=== PATIENT | female | born 1965 | race Caucasian/White ===

== ENCOUNTER 2016-11-05 09:43 | Outpatient (CLI) | payer OTHER ==
[~2016-11-05 09:43] MED LIST: CLARITIN10 MG PO; IRON SUPPLEMEN325 MG PO; LEVOTHYROXINE25 MCG PO; LISINOPRIL10 MG PO; MECLIZINE HCL25 M1 PO; METFORMIN HCL500 MG PO; NEURONTIN300 MG PO; PERCOCET1 TA1 PO; PLAVIX75 MG PO; PRAVASTATIN SOD40 MG PO; PRAZOSIN HCL1 MG PO; RANITIDINE HCL150 MG PO; SEROQUEL100 MG PO; VENTOLIN HFA IN; VOLTAREN1 % TOP
--- NOTE | 2016-11-05 12:07 | DIAGNOSTIC IMAGING REPORT ---
PROCEDURE: CT ABDOMEN/PELVIS W/O CONTRAST INDICATION: ABD PAIN TECHNIQUE: Axial CT images were obtained through the abdomen and pelvis without IV contrast. Coronal and sagittal reformations were created. COMPARISON: 06/26/2012 and upper GI and 05/21/2016 FINDINGS: Clear lung bases. Normal sized heart. No hiatal hernia. Surgical changes of Rosey fundoplication at the GE junction. Surgically absent gallbladder. Hypertrophy of the left and caudate lobes of the liver. Very subtle peripancreatic fat stranding, best seen adjacent to the body and tail of pancreas ventrally. The unenhanced appearance of the adrenal glands, kidneys, and spleen is normal. The abdominal aorta is normal in its course and caliber with trace atherosclerosis. There are no suspicious calcifications, retroperitoneal adenopathy or masses. The upper small bowel loops, and mesentery are normal. Intact anterior abdominal wall. No free fluid or inflammation. There is a smooth, mild wall thickening along the ventral aspect of the distal gastric antrum. No correlate on the recent upper GI study. There is a small amount of retained ingested material in the stomach. The left lower quadrant of the abdomen, the distal descending colon demonstrates circumferential wall thickening and trace pericolonic inflammatory change distally. No diverticula are present. This area was not imaged on the prior study. There is moderately increased amount of retained stool in the sigmoid colon and rectum. The uterus and appendix are surgically absent. Surgical changes of left inguinal hernia repair are seen. The unenhanced appearance of the urinary bladder, pelvic vessels, and pelvic bowel loops is normal. No suspicious calcifications, free pelvic fluid or mass. Intact osseous structures. Degenerative disc disease at L5-S1. IMPRESSION: 1. Circumferential wall thickening of a segment of distal descending colon with trace adjacent inflammation. No diverticula seen in this area. Without more significant inflammation, differential diagnosis includes colitis as well as neoplastic change. Lower endoscopy is recommended. 2. Very subtle peripancreatic fat stranding could indicate low-level pancreatitis. This finding was not present on the prior study. No changes of chronic pancreatitis. 3. Smooth, mild wall thickening of the ventral gastric antrum without correlate on recent upper GI study. This is most likely due to under distention of the stomach, however upper endoscopy would be diagnostic to exclude benign ulceration or gastritis. 4. Hypertrophy of the left and caudate liver lobes raises the possibility of early cirrhotic change. Correlate with history. 5. Surgical changes of Rosey fundoplication, cholecystectomy, appendectomy, hysterectomy and left inguinal hernia repair. All CT scans at this facility use dose modulation, iterative reconstruction, and/or weight-based dosing when appropriate to reduce radiation dose to as low as reasonably achievable.
[2016-11-06] MEDS ORDERED: SEROQUEL100 MG PO ×2 (12:44)
[2016-11-06] MEDS ORDERED: HYDROCHLOROTH12.5 MG PO (16:01)
[2016-11-06] MEDS ORDERED: SEROQUEL200 MG PO (16:07)
[2016-11-06] MEDS ORDERED: ATIVAN0.5 MG PO (16:15)
[2016-11-06] MEDS ORDERED: TRIAMCINOLONE A (16:16)
[2016-11-06] MEDS ORDERED: CELEBREX200 MG PO (16:17)
[2016-11-06] MEDS ORDERED: PANTOPRAZOLE SO40 MG PO (16:18)
[2016-11-06] MEDS ORDERED: VITAMIN D1000 UNIT PO (16:19)
[2016-11-06] MEDS ORDERED: DILT-XR120 MG PO (16:21)
[2016-11-06] MEDS ORDERED: ERY-TAB500 MG PO (16:22)
[2016-11-06] MEDS ORDERED: CYCLOBENZAPRINE5 MG PO (16:23)
[2016-11-06] MEDS ORDERED: VISTARIL25 MG PO (16:23)
[2016-11-06] MEDS ORDERED: HYDROMORPHONE HC2 MG PO (16:27)
[2016-11-06] MEDS ORDERED: DOCQLACE100 MG PO (16:28)
[2016-11-06] MEDS ORDERED: LIDODERM5 % TOP (16:29)
[2016-11-06] MEDS ORDERED: ONDANSETRON ODT4 MG PO (16:30)
[2016-11-06] MEDS ORDERED: METROCREAM0.75 % (16:31)
== END 2016-11-05 23:00 ==
LOC: CT SRH 09:43
DX: R10.9 Unspecified abdominal pain (principal); K63.9 Disease of intestine, unspecified; R16.0 Hepatomegaly, not elsewhere classified; Z90.49 Acquired absence of other specified parts of digestive tract; Z90.89 Acquired absence of other organs; Z98.890 Other specified postprocedural states

== ENCOUNTER 2016-11-05 19:21 | Observation (INO) | payer OTHER ==
[~2016-11-05] VITALS: Ht 182.9 cm; Wt 95.7 kg
--- NOTE | 2016-11-05 22:04 | ED NURSING NOTES ---
Clinical Report - Nurses [facility] [address] [place] [address] 11/05/2016 19:21 Patient: DENISE ENAMORADO TRIAGE Triage time 1933 PM. Acuity: LEVEL 3. Chief Complaint: ABDOMINAL PAIN and NAUSEA. 19:41 11/05/16. Alert. No acute distress. --19:42 Viraj Horn R.N. 19:32 11/05/16. BP: 107/84 taken on the left arm, via an automated monitor, while lying. HR: 84. RR: 16. O2 saturation: 96%. Temp: 98.7 F (oral). Pain level now: 05/19. --19:42 Viraj Horn R.N. Weight: 90.7 kg stated. Height/Length: 73 inches Per Patient. BMI: 26.4. --19:34 Viraj Horn R.N. Medications SEROquel Oral (Tablet 300 mg), 2x a day (1 tab by mouth every morning 1.5 tabs by mouth every evening). --20:15 Viraj Horn R.N. Meclizine HCl Oral 25 mg, as needed. --20:16 Viraj Horn R.N. Loratadine Oral (Tablet 10 mg). --20:17 Viraj Horn R.N. Pravastatin Sodium Oral (Tablet 40 mg). --20:18 Viraj Horn R.N. Ventolin HFA Inhalation (Aerosol Solution 108 (90 Base) mcg/act). --20:18 Viraj Horn R.N. Lisinopril Oral 2.5 mg, daily. --20:18 Viraj Horn R.N. MetFORMIN HCl Oral (Tablet 500 mg), 3x a day. --20:19 Viraj Horn R.N. Plavix Oral (Tablet 75 mg). --20:20 Justina, Viraj, R.N. Ferrous Sulfate Oral, 2x a day. --20:20 Viraj Horn R.N. Gabapentin Oral 300 mg. --20:21 JustinaViraj galdamez R.N. Ranitidine HCl Oral 150 mg, 2x a day. --20:21 Viraj Horn R.N. Voltaren Transdermal (Gel 1 %). --20:21 Viraj Horn R.N. Prazosin HCl Oral (Capsule 1 mg) 1 capsules, at bedtime. --20:22 Viraj Horn R.N. Levothyroxine Sodium Oral (Tablet 25 mcg) 1 tablet, daily. --20:22 Viraj Horn R.N. Oxycodone-Acetaminophen Oral (Tablet 5-325 mg) 1 tablet, 2x a day. --20:24 Viraj Horn R.N. Hydrochlorothiazide Oral (Tablet 12.5 mg) 1 tablet, daily. --20:25 Viraj Horn R.N. Triamcinolone Acetonide External (Cream 0.5 %), 2x a day as needed. --20:26 Viraj Horn R.N. CeleBREX Oral (Capsule 200 mg) 1 capsule, as needed. --20:28 Viraj Horn R.N. Pantoprazole Sodium Oral (Tablet Delayed Release 40 mg) 1 tablet, daily. --20:28 Viraj Horn R.N. Vitamin D3 Oral (Tablet 1000 unit) 1 tablet. --20:29 Viraj Horn R.N. Calcium + D Oral. --20:30 Viraj Horn R.N. Diltiazem HCl Oral (Tablet 120 mg). --20:30 Viraj Horn R.N. Cyclobenzaprine HCl Oral (Tablet 5 mg) 1 tablet, as needed. --20:31 Viraj Horn R.N. Vistaril Oral (Capsule 25 mg) 1 capsule. --20:31 Viraj Horn R.N. Dilaudid Oral (Tablet 2 mg) 2 tablets, PRN as needed. --20:31 Viraj oHrn R.N. Docusate Calcium Oral 100mg. --20:32 Viraj Horn R.N. Lidoderm External (Patch 5 %). --20:32 Viraj Horn R.N. Ondansetron HCl Oral (Tablet 4 mg) 1 tablet. --20:33 Viraj Horn R.N. MetroCream External (Cream 0.75 %). --20:33 Viraj Horn R.N. Allergies Aspirin. Penicillins. plastic tape . --19:40 Viraj Horn R.N. Walnuts. --20:33 Viraj Horn R.N. Strawberries. --20:34 Viraj Horn R.N. Latex. --20:34 Viraj Horn R.N. History Arrived by private vehicle. Historian: patient. Accompanied by family. Primary physician (Halle Schroeder). Onset was gradual. (about 1 month). ( Patient presents to the ED at the referral of her primary care physician. Patient states that she has been experiencing abdominal pain, nausea, and dry heaves for approximately 1 month. Patient states that she had CT scan of her abdomen today and was told by her PCP to come in for evaluation for pancreatitis. Patient states that she has been on antibiotics for approximately 2 weeks, but does not know exactly what she was taking why she was prescribed the antibiotics. Patient states that she just finished her course of antibiotics today.). She has had moderate constipation. ( Patient states that she experienced a bowel movement today and her stool was hard.). PAST MEDICAL HX: Immunizations: up-to-date. SOCIAL HX: Smoker- current status unknown. Alcohol use. (no). History of drug use. (no). --19:42 Viraj Horn R.N. PROBLEMS: Depression. Bipolar Disorder. PTSD. Personality Disorder. TMJ Syndrome. Chest Pain. LNMP - Last Normal Menstrual Period. Migraine Headache. Heart Murmur. TIA - Transient Ischemic Attack. Pleurisy. Sleep Apnea. Tension-Type Headache. Headache. Diabetes Mellitus. Hypertension. Immunizations. --19:41 Viraj Horn R.N. ADDITIONAL SURGERIES: Abdominal Hernia Repair. Appendectomy. Cholecystectomy. Esophagus surgery. Hysterectomy. Ortho surgeries. Umbilical Hernia Repair. --19:41 Viraj Horn R.N. Interventions ID band on patient. --19:42 Viraj Horn R.N. PHYSICAL ASSESSMENT Ambulatory to room. GENERAL / NEURO / PSYCH: Alert. Oriented X 4. Appears in no acute distress. HEENT: Mucous membranes are pink. RESPIRATORY: Respirations not labored. Breath sounds within normal limits. CVS: Normal sinus rhythm noted. Capillary refill less than 2 seconds. GI / : The patient has had nausea. Emesis noted. (dry heaves). Abdominal tenderness. Rebound tenderness. SKIN: Skin is warm and dry. --19:43 Viraj Horn R.N. NURSING PROGRESS NOTES Reassurance given. Call light placed in reach. Side rails up x 2. Bed placed in lowest position. Brakes of bed on. --19:44 Viraj Horn R.N. 20:18 11/05/2016 Site #1 started via IV in the left forearm with an 22g angiocath, with aseptic technique and good blood return; one attempt. Blood drawn. Labeled in the presence of the patient and sent to the lab. Saline lock flushed with 10 mL saline (Only able to draw red tube). --20:18 Jodie Gonzalez Checked patient name and birthdate: patient confirmed. Blood samples drawn from the left hand with syringe and 23g butterfly by tech per protocol ; labeled in presence of the patient and sent to lab: rainbow set. --20:52 Jaquelin Looney 20:55 11/05/2016 Started IV Fluids IV NS (Saline); bolus of 500 mL wide open then at 125 mL/hr over 4 hour(s) via site #1 via IV pump. Allergies verified and confirmed 5 rights. IV patency established. IV site checked: no pain, redness, or swelling. IV flushed thoroughly pre- and post-medication administration. --20:55 Viraj Horn R.N. 20:55 11/05/2016 Dilaudid (HYDROmorphone HCl PF) IVP 0.5 mg given over 2 minute(s) via site #1. Allergies verified, confirmed 5 rights and sedative warning given to the patient. IV patency established. IV site checked: no pain, redness, or swelling. IV flushed thoroughly pre- and post-medication administration. IVP given by RN. --20:55 Viraj Horn R.N. 20:55 11/05/2016 Zofran (Ondansetron HCl) IVP 4 mg given over 2 minute(s) via site #1. Allergies verified and confirmed 5 rights. IV patency established. IV site checked: no pain, redness, or swelling. IV flushed thoroughly pre- and post-medication administration. IVP given by RN. --20:55 Viraj Horn R.N. 21:19 11/05/16. BP: 111/66. HR: 62. RR: 16. O2 saturation: 91% on room air. Pain level now: 8. --21:20 Viraj Horn R.N. The patient is calm and resting quietly. Overall patient status is the same- she states feels the same. --21:20 Viraj Horn R.N. 21:20 11/05/2016 Dilaudid IVP Response: symptoms are the same. The patient feels the same. --21:20 Viraj Horn R.N. 22:06 11/05/2016 Dilaudid (HYDROmorphone HCl PF) IVP 1 mg given. via site #1. Allergies verified, confirmed 5 rights and sedative warning given to the patient. IV patency established. IV site checked: no pain, redness, or swelling. IV flushed thoroughly pre- and post-medication administration. IVP given by RN. --22:06 Viraj Horn R.N. 22:21 11/05/2016 Started 750 mg of Levaquin (Levofloxacin) IVPB in bag #1 500 mL; at 100 mL/hr over 90 minute(s) via site #1 via IV pump. Allergies verified and confirmed 5 rights. IV patency established. IV site checked: no pain, redness, or swelling. IV flushed thoroughly pre- and post-medication administration. --22:21 Viraj Horn R.N. 22:22 11/05/2016 Toradol IVP 30 mg given over 2 minute(s) via site #1. Allergies verified and confirmed 5 rights. IV patency established. IV site checked: no pain, redness, or swelling. IV flushed thoroughly pre- and post-medication administration. IVP given by RN. --22:22 Viraj Horn R.N. 22:33 11/05/16. BP: 93/57 taken on the left arm, via an automated monitor, while lying. HR: 62. RR: 16. O2 saturation: 97%. Pain level now: 0/10. --22:35 Viraj Horn R.N. The patient is calm and resting quietly. Overall patient status is improved- she states feels better. --22:35 Viraj Horn R.N. 22:35 11/05/2016 Dilaudid IVP Response: pain is gone now. Symptoms have improved the patient feels better. --22:35 Viraj Horn R.N. 22:35 11/05/2016 Toradol IVP Response: pain is gone now. Symptoms have improved the patient feels better. --22:35 Viraj Horn R.N. 22:35 11/05/2016 Levaquin IVPB Response: no adverse reaction. --22:35 Viraj Horn R.N. 22:36 11/05/2016 Levaquin IVPB Continued: upon admission at the rate of 100 mL/hr. 350 mL remaining bag #1. IV patency established. IV site checked: no pain, redness, or swelling. IV flushed thoroughly. --22:36 Viraj Horn R.N. DISPOSITION / DISCHARGE Condition at departure: improved. The goals identified in the patient's plan of care were met. Admitted to Acute Care (2300 PM). Report was given to a nurse via a phone call. Report included patient's care, treatment, medications, reviewed medication reconcilliation, and condition (including any recent changes or anticipated changes). All questions were answered. Report was acknowledged and care was transferred. (Naa). FALL RISK ASSESSMENT: Fall risk assessment completed. No fall risk identified. --23:03 Viraj Horn R.N. 23:01 11/05/16. BP: 100/45. HR: 65. RR: 16. O2 saturation: 97%. Pain level now: 0/10. --23:03 Viraj Horn R.N. Locked/Released at 11/05/2016 23:12 by Viraj Horn R.N.
--- NOTE | 2016-11-05 22:04 | ED ORDER SUMMARY ---
..... Patient: DENISE ENAMORADO OrderSheet Merged With [facility] VisitID: [id number] [place] [address] 51y, F Registration Date/Time: 11/05/2016 ORDER SHEET Weight: 90.7 kg (stated) Allergies: Aspirin, Penicillins, plastic tape , Walnuts, Strawberries, Latex GENERAL ORDERS: CBC w Diff Urgent (20:00 11/05/2016 Malathi JOY) (Ack 20:11 LMuller) (20:47 HOShaughnessy R.N.) CMP Urgent (20:11/05/2016 Malathi JOY) (Ack 20:11 LMuller) (20:47 HOShaughnessy R.N.) UA-Culture if indicated Urgent (20:11/05/2016 Malathi JOY) (Ack 20:11 LMuller) (20:47 HOShaughnessy R.N.) Amylase Urgent (20:11/05/2016 Malathi JOY) (Ack 20:11 LMuller) (20:47 HOShaughnessy R.N.) Lipase Urgent (20:11/05/2016 Malathi JOY) (Ack 20:11 LMuller) (20:47 HOShaughnessy R.N.) MEDICATION ORDERS: - (seroquel 450 mg PO one now) (22:14 11/05/2016 Zonia Ramos) (Ack 22:22 HOShaughnessy R.N.) IV FLUIDS: IV NS : initial bolus 500 mL (1000 mL/hr), then 125 mL/hr for 4h (NOW); Urgent (19:59 11/05/2016 Malathi JOY) (20:55 HOShaughnessy R.N.) Dilaudid IV 0.5 mg (HIGH ALERT MEDICATION, NOW) (20:21 11/05/2016 Malathi JOY) (20:55 HOShaughnessy R.N.) Zofran IV 4 mg (NOW) (20:21 11/05/2016 Malathi JOY) (20:55 HOShaughnessy R.N.) Dilaudid IV 1 mg (HIGH ALERT MEDICATION, NOW) (21:56 11/05/2016 Zonia Ramos) (22:06 Terri R.N.) Levaquin IV 750 mg/150 mL (NOW) (22:04 11/05/2016 Zonia Ramos) (22:21 Terri R.N.) Flagyl IV 500 mg/100mL (NOW) (22:04 11/05/2016 Zonia Ramos) (Ack 22:25 Terri R.N.) Toradol IV 30 mg (NOW) (22:13 11/05/2016 Zonia Ramos) (22:22 Terri R.N.) ORDER SHEET NOTES: [Electronically signed by Viraj Horn R.N. (23:12 11/05/2016)] [Electronically signed by Bradley Martinez Dr. (17:44 11/11/2016)] [Electronically locked/signed by Viraj Horn R.N. (23:12 11/05/2016)]
--- NOTE | 2016-11-05 22:04 | ED ORDER SUMMARY ---
..... Patient: DENISE ENAMORADO OrderSheet Merged With [facility] VisitID: [id number] [place] [address] 51y, F Registration Date/Time: 11/05/2016 ORDER SHEET Weight: 90.7 kg (stated) Allergies: Aspirin, Penicillins, plastic tape , Walnuts, Strawberries, Latex GENERAL ORDERS: CBC w Diff Urgent (20:00 11/05/2016 Malathi JOY) (Ack 20:11 LMuller) (20:47 HOShaughnessy R.N.) CMP Urgent (20:11/05/2016 Malathi JOY) (Ack 20:11 LMuller) (20:47 HOShaughnessy R.N.) UA-Culture if indicated Urgent (20:11/05/2016 Malathi JOY) (Ack 20:11 LMuller) (20:47 HOShaughnessy R.N.) Amylase Urgent (20:11/05/2016 Malathi JOY) (Ack 20:11 LMuller) (20:47 HOShaughnessy R.N.) Lipase Urgent (20:11/05/2016 Malathi JOY) (Ack 20:11 LMuller) (20:47 HOShaughnessy R.N.) MEDICATION ORDERS: - (seroquel 450 mg PO one now) (22:14 11/05/2016 Zonia Ramos) (Ack 22:22 HOShaughnessy R.N.) IV FLUIDS: IV NS : initial bolus 500 mL (1000 mL/hr), then 125 mL/hr for 4h (NOW); Urgent (19:59 11/05/2016 Malathi JOY) (20:55 HOShaughnessy R.N.) Dilaudid IV 0.5 mg (HIGH ALERT MEDICATION, NOW) (20:21 11/05/2016 Malathi JOY) (20:55 HOShaughnessy R.N.) Zofran IV 4 mg (NOW) (20:21 11/05/2016 Malathi JOY) (20:55 HOShaughnessy R.N.) Dilaudid IV 1 mg (HIGH ALERT MEDICATION, NOW) (21:56 11/05/2016 Zonia Ramos) (22:06 Terri R.N.) Levaquin IV 750 mg/150 mL (NOW) (22:04 11/05/2016 Zonia Ramos) (22:21 Terri R.N.) Flagyl IV 500 mg/100mL (NOW) (22:04 11/05/2016 Zonia Ramos) (Ack 22:25 Terri R.N.) Toradol IV 30 mg (NOW) (22:13 11/05/2016 Zonia Ramos) (22:22 Terri R.N.) ORDER SHEET NOTES: [Electronically signed by Viraj Horn R.N. (23:12 11/05/2016)] [Electronically signed by Bradley Martinez Dr. (17:44 11/11/2016)] [Electronically locked/signed by Viraj Horn R.N. (23:12 11/05/2016)]
--- NOTE | 2016-11-05 22:04 | ED CLINICAL REPORT ---
Clinical Report - Physicians/Mid Levels [facility] [address] [place] [address] 11/05/2016 19:21 Patient: DENISE ENAMORADO Time Seen: 19:43. Arrived- By private vehicle. Historian- patient and patient's physician (Dr. Zavaleta). HISTORY OF PRESENT ILLNESS Chief Complaint: ABDOMINAL PAIN. This started several months ago and is still present and worsening. It was gradual in onset and has been intermittent and waxing/waning. At its maximum, severity described as 10 / 10. When seen in the E.D., severity described as 9 / 10. It is described as "pain" and stabbing. No radiation. It is described as located in the periumbilical area. The patient has had nausea. No loss of appetite. She has had vomiting ("dry heaves"). She has had mild diarrhea (intermittently - she attributes this to IBS). No recent travel. REVIEW OF SYSTEMS The patient has had chills. No fever, sweats, calf pain, chest pain or difficulty breathing. No pedal edema, black stools, bloody stools or urinary problems. She has had a nonproductive cough ("after I dry heave"). She has had palpitations (chronically). She has had constipation (intermittently - she attributes this to her IBS). She has had diarrhea (intermittently - she attributes this to her IBS). She has had moderate back pain (chronically). It has been similar to previous symptoms. All systems otherwise negative, except as recorded above. PAST HISTORY PCP - Meghann. Problems: Irritable Bowel Syndrome. Depression. Bipolar Disorder. PTSD. Personality Disorder. TMJ Syndrome. Chest Pain. Migraine Headache. Heart Murmur. TIA - Transient Ischemic Attack. Pleurisy. Sleep Apnea. Tension-Type Headache. Headache. Diabetes Mellitus. Hypertension. Additional Surgeries: Abdominal Hernia Repair. Appendectomy. Cholecystectomy. Esophagus surgery. Hysterectomy. Ortho surgeries. Umbilical Hernia Repair. Allergies: Aspirin. Penicillins. plastic tape . SOCIAL HISTORY Former smoker, end date 2003. No alcohol use or drug use. Residence: [place]. FAMILY HISTORY Diabetes in first-degree relative (mother); stroke in first-degree relative (father); emphysema in first-degree relative (father). brother with hepatitis C. ADDITIONAL NOTES The nursing notes have been reviewed. PHYSICAL EXAM Vital Signs: 11/05/2016 19:32 BP: 107/84. HR: 84. RR: 16. O2 saturation: 96%. Temp: 98.7 F. Pain level now: 9/10. Have been reviewed. Appearance: Alert. Appears to be in pain. Eyes: Pupils equal, round and reactive to light. ENT: Pharynx normal. Neck: Normal inspection. Neck supple. CVS: Normal heart rate and rhythm. Heart sounds normal. Respiratory: No respiratory distress. Breath sounds normal. Abdomen: Soft. Moderate tenderness in the upper abdomen. Bowel sounds normal. No organomegaly. No mass. Obese. Back: Normal inspection. No CVA tenderness. Skin: Skin warm and dry. Normal skin color. Normal skin turgor. Extremities: Extremities exhibit normal ROM. No calf tenderness. No lower extremity edema. LABS, X-RAYS, AND EKG Abdominal CT: PROCEDURE: CT ABDOMEN/PELVIS W/O CONTRAST INDICATION: ABD PAIN TECHNIQUE: Axial CT images were obtained through the abdomen and pelvis without IV contrast. Coronal and sagittal reformations were created. COMPARISON: 06/26/2012 and upper GI and 05/21/2016 FINDINGS: Clear lung bases. Normal sized heart. No hiatal hernia. Surgical changes of Rosey fundoplication at the GE junction. Surgically absent gallbladder. Hypertrophy of the left and caudate lobes of the liver. Very subtle peripancreatic fat stranding, best seen adjacent to the body and tail of pancreas ventrally. The unenhanced appearance of the adrenal glands, kidneys, and spleen is normal. The abdominal aorta is normal in its course and caliber with trace atherosclerosis. There are no suspicious calcifications, retroperitoneal adenopathy or masses. The upper small bowel loops, and mesentery are normal. Intact anterior abdominal wall. No free fluid or inflammation. There is a smooth, mild wall thickening along the ventral aspect of the distal gastric antrum. No correlate on the recent upper GI study. There is a small amount of retained ingested material in the stomach. The left lower quadrant of the abdomen, the distal descending colon demonstrates circumferential wall thickening and trace pericolonic inflammatory change distally. No diverticula are present. This area was not imaged on the prior study. There is moderately increased amount of retained stool in the sigmoid colon and rectum. The uterus and appendix are surgically absent. Surgical changes of left inguinal hernia repair are seen. The unenhanced appearance of the urinary bladder, pelvic vessels, and pelvic bowel loops is normal. No suspicious calcifications, free pelvic fluid or mass. Intact osseous structures. Degenerative disc disease at L5-S1. IMPRESSION: 1. Circumferential wall thickening of a segment of distal descending colon with trace adjacent inflammation. No diverticula seen in this area. Without more significant inflammation, differential diagnosis includes colitis as well as neoplastic change. Lower endoscopy is recommended. 2. Very subtle peripancreatic fat stranding could indicate low-level pancreatitis. This finding was not present on the prior study. No changes of chronic pancreatitis. 3. Smooth, mild wall thickening of the ventral gastric antrum without correlate on recent upper GI study. This is most likely due to under distention of the stomach, however upper endoscopy would be diagnostic to exclude benign ulceration or gastritis. 4. Hypertrophy of the left and caudate liver lobes raises the possibility of early cirrhotic change. Correlate with history. Study type: abdomen and pelvis. Abdominal CT performed with IV contrast. The study was independently viewed by me, interpreted by the radiologist and discussed with the radiologist. Laboratory Tests: CBC w Diff: (SINA: 11/06/2016 05:25) ( MsgRcvd 11/06/2016 05:44) Final results Test Result Flag Units (Reference) WHITE BLOOD COUNT 9.5 K/uL (4.5-11.5) RED BLOOD COUNT 4.52 M/uL (4.00-5.20) HEMOGLOBIN 13.1 gm/dL (12.0-16.0) HEMATOCRIT 39.6 % (36.0-46.0) MEAN CELL VOLUME 88 fL (80-100) MEAN CORPUSCULAR HGB 29 pg (26-34) MEAN CORPUSCULAR HGB CONC 33 g/dL (31-37) RED CELL DISTRIBUTION WIDTH 13.6 % (11.6-14.8) PLATELET COUNT 219 K/uL (150-400) NEUTROPHIL % 48.6 L % (50-75) LYMPH % 42.7 H % (25-40) MONO % 6.1 % (3-14) EOSINOPHIL % 2.3 % (0-4) BASOPHIL % 0.3 % (0-2) Troponin-I: (SINA: 11/06/2016 11:20) ( [facility] [place] 11/09/2016 14:48) Final results Test Result Flag Units (Reference) TROPONIN I <0.05 ng/mL (0.00-1.5) TROPONIN REFERENCE RANGE:<0.1 NEGATIVE0.1-1.5 INDETERMINANT>1.5 POSITIVE THYROID STIMULATING HORMONE 2.915 uIU/mL (0.34-3.74) FREE T4 (FREE THYROXINE) 0.97 ng/dL (0.78-4.13) FREE T3 2.1 L pg/mL (2.91-4.70) BMP: (SINA: 11/06/2016 05:25) ( [facility] 11/06/2016 09:47) Final results Test Result Flag Units (Reference) GLUCOSE 109 mg/dL (70-110) BUN 13 mg/dL (7-18) CREATININE 0.7 mg/dL (0.6-1.3) Estimated GFR >60 mL/min Estimated GFR- >60 mL/min Note: Persistent reduction over 3 months in eGFR<60 mL/min/1.73 m2 defines CKD. Patients with eGFR values>=60 mL/min/1.73 m2 may also have CKD if evidence ofpersistent proteinuria. Additional information may be foundat [email or web address]. SODIUM 145 mmol/L (136-145) POTASSIUM 3.4 L mmol/L (3.5-5.1) CHLORIDE 106 mmol/L (98-107) CARBON DIOXIDE 31 mmol/L (21-32) CALCIUM 9.0 mg/dL (8.5-10.1) MAGNESIUM 1.5 L mg/dL (1.8-2.4) THYROID STIMULATING HORMONE 7.105 H uIU/mL (0.34-3.74) UA-Culture if indicated: (SINA: 11/05/2016 12:50) ( [facility] 11/06/2016 13:26) Final results Test Result Flag Units (Reference) URINE COLOR YELLOW URINE APPEARANCE CLEAR URINE GLUCOSE NEGATIVE (NEGATIVE) URINE BILIRUBIN NEGATIVE (NEGATIVE) URINE KETONE TRACE (NEGATIVE) URINE SPECIFIC GRAVITY >= 1.030 (1.010-1.030) URINE PH 6.0 (5.0-8.0) URINE PROTEIN TRACE (NEGATIVE) URINE UROBILINOGEN 0.2 EU/dL (0.2-1.0) URINE NITRITE NEGATIVE (NEGATIVE) URINE BLOOD NEGATIVE (NEGATIVE) URINE LEUK ESTERASE NEGATIVE (NEGATIVE) URINE RBC NONE SEEN rbc/hpf (0-1) URINE WBC 1-3 wbc/hpf (0-1) URINE EPITHELIAL CELLS 1-3 EPI/hpf (0-5) URINE BACTERIA FEW (1+) (NONE SEEN) URINE COMMENT CULT NOT INDICATED 0-1 HYALINE CAST. 1+ MUCOUS. 1+ YEASTURINE CULTURES ARE SET-UP BASED ON THE FOLLOWING CRITERIA:POSITIVE NITRITEPOSITIVE LEUKOCYTE ESTERASEGREATER THAN 10 WHITE BLOOD CELLSMODERATE (2+) OR GREATER BACTERIA CBC w Diff: (SINA: 11/05/2016 20:45) ( [facility] [place] 11/05/2016 21:12) Final results Test Result Flag Units (Reference) WHITE BLOOD COUNT 11.4 K/uL (4.5-11.5) RED BLOOD COUNT 5.08 M/uL (4.00-5.20) HEMOGLOBIN 14.7 gm/dL (12.0-16.0) HEMATOCRIT 44.7 % (36.0-46.0) MEAN CELL VOLUME 88 fL (80-100) MEAN CORPUSCULAR HGB 29 pg (26-34) MEAN CORPUSCULAR HGB CONC 33 g/dL (31-37) RED CELL DISTRIBUTION WIDTH 13.9 % (11.6-14.8) PLATELET COUNT 238 K/uL (150-400) NEUTROPHIL % 69.1 % (50-75) LYMPH % 24.8 L % (25-40) MONO % 4.9 % (3-14) EOSINOPHIL % 0.9 % (0-4) BASOPHIL % 0.3 % (0-2) CMP: (SINA: 11/05/2016 20:16) ( [facility] 11/05/2016 20:51) Final results Test Result Flag Units (Reference) GLUCOSE 108 mg/dL (70-110) BUN 11 mg/dL (7-18) CREATININE 0.7 mg/dL (0.6-1.3) Estimated GFR >60 mL/min Estimated GFR- >60 mL/min Note: Persistent reduction over 3 months in eGFR<60 mL/min/1.73 m2 defines CKD. Patients with eGFR values>=60 mL/min/1.73 m2 may also have CKD if evidence ofpersistent proteinuria. Additional information may be foundat [email or web address]. SODIUM 144 mmol/L (136-145) POTASSIUM 3.8 mmol/L (3.5-5.1) CHLORIDE 104 mmol/L (98-107) CARBON DIOXIDE 29 mmol/L (21-32) CALCIUM 9.7 mg/dL (8.5-10.1) TOTAL PROTEIN 7.1 g/dL (6.4-8.2) ALBUMIN 4.1 g/dL (3.3-5.0) BILIRUBIN, TOTAL 0.4 mg/dL (0.0-1.0) ALKALINE PHOSPHATASE 62 U/L (46-116) AST (SGOT) 21 U/L (15-37) ALT (SGPT) 27 U/L (12-78) LIPASE 120 U/L (73-393) AMYLASE 26 U/L (25-115) . PROGRESS AND PROCEDURES Course of Care: 21:09 11/05/16. The case was discussed with Dr. Fan at change of shift reviewed the patient's history and examination findings. He will follow up on the results of the patient's pending studies and will arrange an appropriate disposition for her. - YVONNE the patient is a pleasant 51-year-old female presenting for evaluation of abdominal pain. The patient is a evaluated by the previous doctor. Agreed assessment and plan. Plan is follow-up on the patient's laboratory studies and CT scan. Patient's pain in the emergency department was somewhat difficult to control. Because of the findings noted on CT scan, discussed with patient in admission to the hospital versus outpatient management. Because the pain is not been able to control well here in the emergency department, patient is not a good outpatient candidate. Discussed case with the hospitalist who will admit the patient. Antibiotics of been provided. Discussed with patient her workup here in the emergency department and laboratory studies including her diagnosis and plan of care. All questions have been answered. The patient was agreeable to the treatment plan. No further recommendations made by internal medicine in regards to patient's admission to the hospital. Disposition: Observation in Acute Care. CLINICAL IMPRESSION acute intractable abdominal pain acute colitis. (Electronically signed by Bradley Martinez Dr. 11/11/2016 17:44)
--- NOTE | 2016-11-05 22:04 | ED CLINICAL REPORT ---
Clinical Report - Physicians/Mid Levels [facility] [address] [place] [address] 11/05/2016 19:21 Patient: DENISE ENAMORADO Time Seen: 19:43. Arrived- By private vehicle. Historian- patient and patient's physician (Dr. Zavaleta). HISTORY OF PRESENT ILLNESS Chief Complaint: ABDOMINAL PAIN. This started several months ago and is still present and worsening. It was gradual in onset and has been intermittent and waxing/waning. At its maximum, severity described as 10 / 10. When seen in the E.D., severity described as 9 / 10. It is described as "pain" and stabbing. No radiation. It is described as located in the periumbilical area. The patient has had nausea. No loss of appetite. She has had vomiting ("dry heaves"). She has had mild diarrhea (intermittently - she attributes this to IBS). No recent travel. REVIEW OF SYSTEMS The patient has had chills. No fever, sweats, calf pain, chest pain or difficulty breathing. No pedal edema, black stools, bloody stools or urinary problems. She has had a nonproductive cough ("after I dry heave"). She has had palpitations (chronically). She has had constipation (intermittently - she attributes this to her IBS). She has had diarrhea (intermittently - she attributes this to her IBS). She has had moderate back pain (chronically). It has been similar to previous symptoms. All systems otherwise negative, except as recorded above. PAST HISTORY PCP - Meghann. Problems: Irritable Bowel Syndrome. Depression. Bipolar Disorder. PTSD. Personality Disorder. TMJ Syndrome. Chest Pain. Migraine Headache. Heart Murmur. TIA - Transient Ischemic Attack. Pleurisy. Sleep Apnea. Tension-Type Headache. Headache. Diabetes Mellitus. Hypertension. Additional Surgeries: Abdominal Hernia Repair. Appendectomy. Cholecystectomy. Esophagus surgery. Hysterectomy. Ortho surgeries. Umbilical Hernia Repair. Allergies: Aspirin. Penicillins. plastic tape . SOCIAL HISTORY Former smoker, end date 2003. No alcohol use or drug use. Residence: [place]. FAMILY HISTORY Diabetes in first-degree relative (mother); stroke in first-degree relative (father); emphysema in first-degree relative (father). brother with hepatitis C. ADDITIONAL NOTES The nursing notes have been reviewed. PHYSICAL EXAM Vital Signs: 11/05/2016 19:32 BP: 107/84. HR: 84. RR: 16. O2 saturation: 96%. Temp: 98.7 F. Pain level now: 9/10. Have been reviewed. Appearance: Alert. Appears to be in pain. Eyes: Pupils equal, round and reactive to light. ENT: Pharynx normal. Neck: Normal inspection. Neck supple. CVS: Normal heart rate and rhythm. Heart sounds normal. Respiratory: No respiratory distress. Breath sounds normal. Abdomen: Soft. Moderate tenderness in the upper abdomen. Bowel sounds normal. No organomegaly. No mass. Obese. Back: Normal inspection. No CVA tenderness. Skin: Skin warm and dry. Normal skin color. Normal skin turgor. Extremities: Extremities exhibit normal ROM. No calf tenderness. No lower extremity edema. LABS, X-RAYS, AND EKG Abdominal CT: PROCEDURE: CT ABDOMEN/PELVIS W/O CONTRAST INDICATION: ABD PAIN TECHNIQUE: Axial CT images were obtained through the abdomen and pelvis without IV contrast. Coronal and sagittal reformations were created. COMPARISON: 06/26/2012 and upper GI and 05/21/2016 FINDINGS: Clear lung bases. Normal sized heart. No hiatal hernia. Surgical changes of Rosey fundoplication at the GE junction. Surgically absent gallbladder. Hypertrophy of the left and caudate lobes of the liver. Very subtle peripancreatic fat stranding, best seen adjacent to the body and tail of pancreas ventrally. The unenhanced appearance of the adrenal glands, kidneys, and spleen is normal. The abdominal aorta is normal in its course and caliber with trace atherosclerosis. There are no suspicious calcifications, retroperitoneal adenopathy or masses. The upper small bowel loops, and mesentery are normal. Intact anterior abdominal wall. No free fluid or inflammation. There is a smooth, mild wall thickening along the ventral aspect of the distal gastric antrum. No correlate on the recent upper GI study. There is a small amount of retained ingested material in the stomach. The left lower quadrant of the abdomen, the distal descending colon demonstrates circumferential wall thickening and trace pericolonic inflammatory change distally. No diverticula are present. This area was not imaged on the prior study. There is moderately increased amount of retained stool in the sigmoid colon and rectum. The uterus and appendix are surgically absent. Surgical changes of left inguinal hernia repair are seen. The unenhanced appearance of the urinary bladder, pelvic vessels, and pelvic bowel loops is normal. No suspicious calcifications, free pelvic fluid or mass. Intact osseous structures. Degenerative disc disease at L5-S1. IMPRESSION: 1. Circumferential wall thickening of a segment of distal descending colon with trace adjacent inflammation. No diverticula seen in this area. Without more significant inflammation, differential diagnosis includes colitis as well as neoplastic change. Lower endoscopy is recommended. 2. Very subtle peripancreatic fat stranding could indicate low-level pancreatitis. This finding was not present on the prior study. No changes of chronic pancreatitis. 3. Smooth, mild wall thickening of the ventral gastric antrum without correlate on recent upper GI study. This is most likely due to under distention of the stomach, however upper endoscopy would be diagnostic to exclude benign ulceration or gastritis. 4. Hypertrophy of the left and caudate liver lobes raises the possibility of early cirrhotic change. Correlate with history. Study type: abdomen and pelvis. Abdominal CT performed with IV contrast. The study was independently viewed by me, interpreted by the radiologist and discussed with the radiologist. Laboratory Tests: CBC w Diff: (SINA: 11/06/2016 05:25) ( MsgRcvd 11/06/2016 05:44) Final results Test Result Flag Units (Reference) WHITE BLOOD COUNT 9.5 K/uL (4.5-11.5) RED BLOOD COUNT 4.52 M/uL (4.00-5.20) HEMOGLOBIN 13.1 gm/dL (12.0-16.0) HEMATOCRIT 39.6 % (36.0-46.0) MEAN CELL VOLUME 88 fL (80-100) MEAN CORPUSCULAR HGB 29 pg (26-34) MEAN CORPUSCULAR HGB CONC 33 g/dL (31-37) RED CELL DISTRIBUTION WIDTH 13.6 % (11.6-14.8) PLATELET COUNT 219 K/uL (150-400) NEUTROPHIL % 48.6 L % (50-75) LYMPH % 42.7 H % (25-40) MONO % 6.1 % (3-14) EOSINOPHIL % 2.3 % (0-4) BASOPHIL % 0.3 % (0-2) Troponin-I: (SINA: 11/06/2016 11:20) ( [facility] Final results Test Result Flag Units (Reference) TROPONIN I <0.05 ng/mL (0.00-1.5) TROPONIN REFERENCE RANGE:<0.1 NEGATIVE0.1-1.5 INDETERMINANT>1.5 POSITIVE THYROID STIMULATING HORMONE 2.915 uIU/mL (0.34-3.74) FREE T4 (FREE THYROXINE) 0.97 ng/dL (0.78-4.13) FREE T3 2.1 L pg/mL (2.91-4.70) BMP: (SINA: 11/06/2016 05:25) ( [facility] 11/[facility] 09:47) Final results Test Result Flag Units (Reference) GLUCOSE 109 mg/dL (70-110) BUN 13 mg/dL (7-18) CREATININE 0.7 mg/dL (0.6-1.3) Estimated GFR >60 mL/min Estimated GFR- >60 mL/min Note: Persistent reduction over 3 months in eGFR<60 mL/min/1.73 m2 defines CKD. Patients with eGFR values>=60 mL/min/1.73 m2 may also have CKD if evidence ofpersistent proteinuria. Additional information may be foundat [email or web address]. SODIUM 145 mmol/L (136-145) POTASSIUM 3.4 L mmol/L (3.5-5.1) CHLORIDE 106 mmol/L (98-107) CARBON DIOXIDE 31 mmol/L (21-32) CALCIUM 9.0 mg/dL (8.5-10.1) MAGNESIUM 1.5 L mg/dL (1.8-2.4) THYROID STIMULATING HORMONE 7.105 H uIU/mL (0.34-3.74) UA-Culture if indicated: (SINA: 11/05/2016 12:50) ( [facility] 13:26) Final results Test Result Flag Units (Reference) URINE COLOR YELLOW URINE APPEARANCE CLEAR URINE GLUCOSE NEGATIVE (NEGATIVE) URINE BILIRUBIN NEGATIVE (NEGATIVE) URINE KETONE TRACE (NEGATIVE) URINE SPECIFIC GRAVITY >= 1.030 (1.010-1.030) URINE PH 6.0 (5.0-8.0) URINE PROTEIN TRACE (NEGATIVE) URINE UROBILINOGEN 0.2 EU/dL (0.2-1.0) URINE NITRITE NEGATIVE (NEGATIVE) URINE BLOOD NEGATIVE (NEGATIVE) URINE LEUK ESTERASE NEGATIVE (NEGATIVE) URINE RBC NONE SEEN rbc/hpf (0-1) URINE WBC 1-3 wbc/hpf (0-1) URINE EPITHELIAL CELLS 1-3 EPI/hpf (0-5) URINE BACTERIA FEW (1+) (NONE SEEN) URINE COMMENT CULT NOT INDICATED 0-1 HYALINE CAST. 1+ MUCOUS. 1+ YEASTURINE CULTURES ARE SET-UP BASED ON THE FOLLOWING CRITERIA:POSITIVE NITRITEPOSITIVE LEUKOCYTE ESTERASEGREATER THAN 10 WHITE BLOOD CELLSMODERATE (2+) OR GREATER BACTERIA CBC w Diff: (SINA: 11/05/2016 20:45) ( [facility] 11/05/2016 21:12) Final results Test Result Flag Units (Reference) WHITE BLOOD COUNT 11.4 K/uL (4.5-11.5) RED BLOOD COUNT 5.08 M/uL (4.00-5.20) HEMOGLOBIN 14.7 gm/dL (12.0-16.0) HEMATOCRIT 44.7 % (36.0-46.0) MEAN CELL VOLUME 88 fL (80-100) MEAN CORPUSCULAR HGB 29 pg (26-34) MEAN CORPUSCULAR HGB CONC 33 g/dL (31-37) RED CELL DISTRIBUTION WIDTH 13.9 % (11.6-14.8) PLATELET COUNT 238 K/uL (150-400) NEUTROPHIL % 69.1 % (50-75) LYMPH % 24.8 L % (25-40) MONO % 4.9 % (3-14) EOSINOPHIL % 0.9 % (0-4) BASOPHIL % 0.3 % (0-2) CMP: (SINA: 11/05/2016 20:16) ( [facility]51) Final results Test Result Flag Units (Reference) GLUCOSE 108 mg/dL (70-110) BUN 11 mg/dL (7-18) CREATININE 0.7 mg/dL (0.6-1.3) Estimated GFR >60 mL/min Estimated GFR- >60 mL/min Note: Persistent reduction over 3 months in eGFR<60 mL/min/1.73 m2 defines CKD. Patients with eGFR values>=60 mL/min/1.73 m2 may also have CKD if evidence ofpersistent proteinuria. Additional information may be foundat [email or web address]. SODIUM 144 mmol/L (136-145) POTASSIUM 3.8 mmol/L (3.5-5.1) CHLORIDE 104 mmol/L (98-107) CARBON DIOXIDE 29 mmol/L (21-32) CALCIUM 9.7 mg/dL (8.5-10.1) TOTAL PROTEIN 7.1 g/dL (6.4-8.2) ALBUMIN 4.1 g/dL (3.3-5.0) BILIRUBIN, TOTAL 0.4 mg/dL (0.0-1.0) ALKALINE PHOSPHATASE 62 U/L (46-116) AST (SGOT) 21 U/L (15-37) ALT (SGPT) 27 U/L (12-78) LIPASE 120 U/L (73-393) AMYLASE 26 U/L (25-115) . PROGRESS AND PROCEDURES Course of Care: 21:09 11/05/16. The case was discussed with Dr. Fan at change of shift reviewed the patient's history and examination findings. He will follow up on the results of the patient's pending studies and will arrange an appropriate disposition for her. - YVONNE the patient is a pleasant 51-year-old female presenting for evaluation of abdominal pain. The patient is a evaluated by the previous doctor. Agreed assessment and plan. Plan is follow-up on the patient's laboratory studies and CT scan. Patient's pain in the emergency department was somewhat difficult to control. Because of the findings noted on CT scan, discussed with patient in admission to the hospital versus outpatient management. Because the pain is not been able to control well here in the emergency department, patient is not a good outpatient candidate. Discussed case with the hospitalist who will admit the patient. Antibiotics of been provided. Discussed with patient her workup here in the emergency department and laboratory studies including her diagnosis and plan of care. All questions have been answered. The patient was agreeable to the treatment plan. No further recommendations made by internal medicine in regards to patient's admission to the hospital. Disposition: Observation in Acute Care. CLINICAL IMPRESSION acute intractable abdominal pain acute colitis. (Electronically signed by Bradley Martinez Dr. 11/11/2016 17:44)
--- NOTE | 2016-11-05 22:50 | History & Physical Report ---
Admission Admit Date 11/05/16 History Chief Complaint Abdominal Pain, Nausea History of Present Illness Patient is a 51 year old female with a past medical history of Essential Hypertension, Diabetes Mellitus Type II, Obstructive Sleep Apnea, Hx of TIA, Bipolar Disorder, and PTSD. She presents to the ER at [facility] complaining of worsening abdominal pain. Pt states she has been experiencing intermittent abdominal pain for the last month. Pt states the pain is located primarily in her epigastrium. Pt states the pain is non radiating. Recently she has been experiencing nausea related to this pain but has not vomited. Pt states she had a CT of her abdomen as an outpatient today which revealed some possible pancreatic inflammation and she was referred by her PCP to come to the ER for further evaluation. Pt denies any recent diarrhea. She does complain of constipation however. She denies fever but does endorse chills. Pt has no other complaints or concerns at this time. Patient History 1. Type II diabetes mellitus 2. Hypothyroidism 3. HTN (hypertension) 4. Asthma 5. Hyperlipemia 6. SLEEP APNEA 7. Bipolar disorder Social History Pt denies use of tobacco, alcohol, and illicit substances although she does have a remote hx of tobacco use. Family History Family history was reviewed; no changes noted. Medications and Allergies Medications Current Medications Sig/Deann Start time Last Medication Dose Route Stop Time Status Admin Quetiapine Fumarate 200 MG QHS 11/06 2100 UNV PO Clopidogrel Bisulfate 75 MG DAILY 11/06 899 UNV PO Ferrous Sulfate 325 MG BID 11/06 899 UNV PO Levothyroxine Sodium 25 MCG QAM 11/06 899 UNV PO Lisinopril 2.5 MG QAM 11/06 899 UNV PO Loratadine 10 MG DAILY 11/06 09 UNV PO Oxycodone/ 1 TAB DAILY 11/06 899 UNV Acetaminophen PO Insulin Human Lispro See Dose ACHS 11/06 0730 UNi Insts (1) SC Gabapentin 300 MG TID 11/06 06 UNV PO Pantoprazole Sodium 40 MG DAILY@0600 11/06 0600 UNV IV Acetaminophen 650 MG Q6H PRN 11/05 2244 UNV PO Albuterol 2 DOSE Q4H PRN 11/05 224 UNV IN Docusate Sodium 250 MG BID PRN 11/05 224 UNV PO Hydromorphone HCl 1 MG Q4H PRN 11/05 2244 UNV IV Meclizine HCl 25 MG TID PRN 11/05 2244 UNV PO Naloxone HCl 0.4 MG PRN PRN 11/05 2244 UNV IV Ondansetron HCl 4 MG Q6H PRN 11/05 2244 UNV IV Ondansetron HCl 4 MG Q8H PRN 11/05 2244 UNV IV Sodium Chloride 1,000 ML ASDIRECTED 11/05 2244 UNV IV Sodium Chloride 100 ML Q1H 11/05 2244 UNi IV 11/06 0946 Zolpidem Tartrate 5 MG QHS PRN 11/05 2244 UNV PO Dose Instructions: (1)Insulin Human Lispro: MEDIUM DOSE: ACCUCHECK AND SLIDING SCALE >>To change sliding scale DISCONTINUE this order and enter a NEW order. Thanks< Allergies Coded Allergies: Penicillins (Severe, Cardiac Arrest 07/13/15) TAPE - PLASTIC (Intermediate, RASH 11/05/16) [place] (blisters on lips/swells lips 07/13/15) Aspirin (Mild, Itching/pruritus 11/05/16) Uncoded Allergies: Walnuts (Severe, BLISTERS IN MOUTH/LIPS SWELL 11/05/16) ALL TAPE EXCEPT PAPER TAPE (06/27/15) Review of Systems Other All systems reviewed and are negative except for what has already been mentioned in the HPI. Physical Exam Vital Signs / I&Os TEMP: 98.7 degrees BP: 107/84 HR: 84 RR: 16 SpO2: 96% on room air Other GENERAL: NAD; Pt laying comfortably in bed HEENT: AT/NC; PERRLA, EOMI; MM Moist CARDIAC: RRR, No M/R/G appreciated PULM: Clear to auscultation bilaterally ABD: Soft, Mildly tender to palpation over epigastrium, ND, Positive BS in all quadrants; No hepatosplenomegaly appreciated EXT: No C/C/E in bilateral upper and lower extremity; No calve tenderness bilaterally SKIN: Warm, dry, pink, and intact NEURO: Alert and oriented x3; Following all commands PSYCH: Normal mood and affect LAB Results Laboratory Tests 11/05 Chemistry Plasma Sodium (136 - 145 mmol/L) 144 Plasma Potassium (3.5 - 5.1 mmol/L) 3.8 Plasma Chloride (98 - 107 mmol/L) 104 CO2 (Enzymatic) (21 - 32 mmol/L) 29 BUN (7 - 18 mg/dL) 11 Creatinine (0.6 - 1.3 mg/dL) 0.7 Est GFR ( Amer) (mL/min) >60 Est GFR (Non-Af Amer) (mL/min) >60 Glucose (70 - 110 mg/dL) 108 Plasma Calcium (8.5 - 10.1 mg/dL) 9.7 Total Bilirubin (0.0 - 1.0 mg/dL) 0.4 AST (15 - 37 U/L) 21 ALT (12 - 78 U/L) 27 Alkaline Phosphatase (46 - 116 U/L) 62 Total Protein (6.4 - 8.2 g/dL) 7.1 Albumin (3.3 - 5.0 g/dL) 4.1 Amylase (25 - 115 U/L) 26 Lipase (73 - 393 U/L) 120 Hematology WBC (4.5 - 11.5 K/uL) 11.4 RBC (4.00 - 5.20 M/uL) 5.08 Hgb (12.0 - 16.0 gm/dL) 14.7 Hct (36.0 - 46.0 %) 44.7 MCV (80 - 100 fL) 88 MCH (26 - 34 pg) 29 RDW (11.6 - 14.8 %) 13.9 Neut % (Auto) (50 - 75 %) 69.1 Lymph % (Auto) (25 - 40 %) 24.8 [place] % (Auto) (3 - 14 %) 4.9 Eos % (Auto) (0 - 4 %) 0.9 Baso % (Auto) (0 - 2 %) 0.3 Plt Count, EDTA (150 - 400 K/uL) 238 PUBS MCHC (31 - 37 g/dL) [address] of the abdomen shows possible fat stranding of the pancreas and circumfrential thickening of the colon. Assessment and Plan Problem List 1. Abdominal pain Plan - Etiology is not clear - CT of the abdomen today does show some possible colitis, however this does not appear to be infectious - Consider General Surgery consultation for colonoscopy in AM - Lipase is normal, and pt has had a cholecystectomy in the past - Start IV Normal Saline at 125 mL/hour now - Advance diet as tolerated - Repeat CBC and BMP in AM - IV Dilaudid 1 mg q 4 hours PRN for severe pain - IV Zofran PRN for nausea 2. HTN (hypertension) Status Chronic Plan - Well controlled - Continue home Lisinopril 3. Type II diabetes mellitus Status Chronic Plan - Hold home Metformin for now - Check FSBS q AC and HS - Start medium-dose SSI 4. Hypothyroidism Status Chronic Plan - Continue home dose of Levothyroxine 5. Hyperlipemia Status Chronic Plan - Continue home statin therapy 6. Depression Status Chronic Plan - Well controlled - Continue home medications
[2016-11-05 23:29] VITALS: BP 132/78
[2016-11-06 03:29] VITALS: BP 101/69
[2016-11-06 06:39] VITALS: BP 92/53
[2016-11-06 07:52] VITALS: BP 102/66
[2016-11-06 10:44] VITALS: BP 114/80
[2016-11-06] MEDS ORDERED: SEROQUEL100 MG PO ×2 (12:44)
[2016-11-06 14:15] VITALS: BP 102/60
--- NOTE | 2016-11-06 15:35 | Provider's Discharge Care Plan ---
Problem, Goal, Plan Problem List 1. Colitis Goals: Therapeutic intervention, I have referred you to GI Instructions: Follow up as directed 2. Abdominal pain Goals: Therapeutic intervention Instructions: Follow up as directed
[2016-11-06] MEDS ORDERED: HYDROCHLOROTH12.5 MG PO (16:01)
[2016-11-06] MEDS ORDERED: SEROQUEL200 MG PO (16:07)
[2016-11-06] MEDS ORDERED: ATIVAN0.5 MG PO (16:15)
[2016-11-06] MEDS ORDERED: TRIAMCINOLONE A (16:16)
[2016-11-06] MEDS ORDERED: CELEBREX200 MG PO (16:17)
[2016-11-06] MEDS ORDERED: PANTOPRAZOLE SO40 MG PO (16:18)
[2016-11-06] MEDS ORDERED: VITAMIN D1000 UNIT PO (16:19)
[2016-11-06] MEDS ORDERED: DILT-XR120 MG PO (16:21)
[2016-11-06] MEDS ORDERED: ERY-TAB500 MG PO (16:22)
[2016-11-06] MEDS ORDERED: CYCLOBENZAPRINE5 MG PO (16:23)
[2016-11-06] MEDS ORDERED: VISTARIL25 MG PO (16:23)
[2016-11-06] MEDS ORDERED: HYDROMORPHONE HC2 MG PO (16:27)
[2016-11-06] MEDS ORDERED: DOCQLACE100 MG PO (16:28)
[2016-11-06] MEDS ORDERED: LIDODERM5 % TOP (16:29)
[2016-11-06] MEDS ORDERED: ONDANSETRON ODT4 MG PO (16:30)
[2016-11-06] MEDS ORDERED: METROCREAM0.75 % (16:31)
--- NOTE | 2016-11-11 17:44 | ED DISCHARGE INSTRUCTIONS ---
Patient: DENISE ENAMORADO General Instructions [facility] VisitID: [id number] [address] [place] [address] 51y, F Registration Date/Time: 11/05/2016 acute intractable abdominal pain acute colitis. (Electronically signed by Bradley Martinez Dr. 11/11/2016 17:44)
--- NOTE | 2016-11-11 17:44 | ED MAR SUMMARY ---
..... Medication Administration Record [facility] [address] [facility] [place] [address] Patient: DENISE ENAMORADO Visit ID: [id number] 51y, F Weight: 90.7 kg Height/Length: 73 in BMI: 26.4 ALLERGIES: Aspirin, Penicillins, plastic tape , Latex, Strawberries, Walnuts Start 20:55 11/05/2016 Viraj Horn R.N. Medication Administered: IV NS (SALINE), Dose: IV Fluids over 4 hour(s), Rate: 125 mL/hr, Bolus: 500 mL wide open, Site: #1 left forearm. Medication Ordered: IV NS : initial bolus 500 mL (1000 mL/hr), then 125 mL/hr for 4h (NOW); Urgent. Given 20:11/05/2016 Viraj Horn R.N. Medication Administered: DILAUDID [IVP] (HYDROMORPHONE HCL PF), Dose: 0.5 mg IVP over 2 minute(s), Site: #1 left forearm. Medication Ordered: Dilaudid IV 0.5 mg (HIGH ALERT MEDICATION, NOW). Given 20:11/05/2016 Viraj Horn R.N. Medication Administered: ZOFRAN [IVP] (ONDANSETRON HCL), Dose: 4 mg IVP over 2 minute(s), Site: #1 left forearm. Medication Ordered: Zofran IV 4 mg (NOW). Given 22:06 11/05/2016 Viraj Horn R.N. Medication Administered: DILAUDID [IVP] (HYDROMORPHONE HCL PF), Dose: 1 mg IVP, Site: #1 left forearm. Medication Ordered: Dilaudid IV 1 mg (HIGH ALERT MEDICATION, NOW). Start 22:21 11/05/2016 Viraj Horn R.N., Continued Upon Admission 22:36 11/05/2016 Viraj Horn R.N. Medication Administered: LEVAQUIN [IVPB] (LEVOFLOXACIN), Dose: 750 mg IVPB over 90 minute(s), Rate: 100 mL/hr, Dispensed: 500 mL bag, Site: #1 left forearm. Medication Ordered: Levaquin IV 750 mg/150 mL (NOW). Given 22:22 11/05/2016 Viraj Horn R.N. Medication Administered: TORADOL [IVP], Dose: 30 mg IVP over 2 minute(s), Site: #1 left forearm. Medication Ordered: Toradol IV 30 mg (NOW).
--- NOTE | 2016-11-11 17:44 | ED MAR SUMMARY ---
..... Medication Administration Record [facility] [address] [facility] [facility] [place] [address] Patient: DENISE ENAMORADO Visit ID: [id number] 51y, F Weight: 90.7 kg Height/Length: 73 in BMI: 26.4 ALLERGIES: Aspirin, Penicillins, plastic tape , Latex, Strawberries, Walnuts Start 20:55 11/05/2016 Viraj Horn R.N. Medication Administered: IV NS (SALINE), Dose: IV Fluids over 4 hour(s), Rate: 125 mL/hr, Bolus: 500 mL wide open, Site: #1 left forearm. Medication Ordered: IV NS : initial bolus 500 mL (1000 mL/hr), then 125 mL/hr for 4h (NOW); Urgent. Given 20:11/05/2016 Viraj Horn R.N. Medication Administered: DILAUDID [IVP] (HYDROMORPHONE HCL PF), Dose: 0.5 mg IVP over 2 minute(s), Site: #1 left forearm. Medication Ordered: Dilaudid IV 0.5 mg (HIGH ALERT MEDICATION, NOW). Given 20:11/05/2016 Viraj Horn R.N. Medication Administered: ZOFRAN [IVP] (ONDANSETRON HCL), Dose: 4 mg IVP over 2 minute(s), Site: #1 left forearm. Medication Ordered: Zofran IV 4 mg (NOW). Given 22:06 11/05/2016 Viraj Horn R.N. Medication Administered: DILAUDID [IVP] (HYDROMORPHONE HCL PF), Dose: 1 mg IVP, Site: #1 left forearm. Medication Ordered: Dilaudid IV 1 mg (HIGH ALERT MEDICATION, NOW). Start 22:21 11/05/2016 Viraj Horn R.N., Continued Upon Admission 22:36 11/05/2016 Viraj Horn R.N. Medication Administered: LEVAQUIN [IVPB] (LEVOFLOXACIN), Dose: 750 mg IVPB over 90 minute(s), Rate: 100 mL/hr, Dispensed: 500 mL bag, Site: #1 left forearm. Medication Ordered: Levaquin IV 750 mg/150 mL (NOW). Given 22:22 11/05/2016 Viraj Horn R.N. Medication Administered: TORADOL [IVP], Dose: 30 mg IVP over 2 minute(s), Site: #1 left forearm. Medication Ordered: Toradol IV 30 mg (NOW).
--- NOTE | 2016-11-11 17:44 | ED MED RECONCILIATION SUMMARY ---
Patient: DENISE ENAMORADO Medication Reconciliation Report [facility] VisitID: [id number] [address] [place] [address] 51y, F Registration Date/Time: 11/05/2016 Weight: 90.7 kg Height/Length: 73 in. BMI: 26.4 ALLERGIES: Aspirin, Latex, Penicillins, plastic tape , Strawberries, Walnuts The patient's Home Medications are listed below: THE FOLLOWING MEDICATIONS NEED TO BE RECONCILED: Calcium + D Oral CeleBREX Oral (200 mg) 1 capsule Cyclobenzaprine HCl Oral (5 mg) 1 tablet Dilaudid Oral (2 mg) 2 tablets, PRN Diltiazem HCl Oral (120 mg) Docusate Calcium Oral 100mg Ferrous Sulfate Oral, 2x a day Gabapentin Oral 300 mg Hydrochlorothiazide Oral (12.5 mg) 1 tablet, daily Levothyroxine Sodium Oral (25 mcg) 1 tablet, daily Lidoderm External (5 %) Lisinopril Oral 2.5 mg, daily Loratadine Oral (10 mg) Meclizine HCl Oral 25 mg MetFORMIN HCl Oral (500 mg), 3x a day MetroCream External (0.75 %) Ondansetron HCl Oral (4 mg) 1 tablet Oxycodone-Acetaminophen Oral (5-325 mg) 1 tablet, 2x a day Pantoprazole Sodium Oral (40 mg) 1 tablet, daily Plavix Oral (75 mg) Pravastatin Sodium Oral (40 mg) Prazosin HCl Oral (1 mg) 1 capsules, at bedtime Ranitidine HCl Oral 150 mg, 2x a day SEROquel Oral (300 mg), 2x a day, 1 tab by mouth every morning 1.5 tabs by mouth every evening Triamcinolone Acetonide External (0.5 %), 2x a day Ventolin HFA Inhalation (108 (90 Base) mcg/act) Vistaril Oral (25 mg) 1 capsule Vitamin D3 Oral (1000 unit) 1 tablet Voltaren Transdermal (1 %) The source(s) of the original Home Medication information: Not obtained. The following Medications were given to the patient in the Emergency Department: IV NS IV Fluids bolus 500 mL wide open, then 125 mL/hr, administered: 11/05/2016 8:55:00 PM Dilaudid [IVP] IVP 0.5 mg, administered: 11/05/2016 8:55:00 PM Zofran [IVP] IVP 4 mg, administered: 11/05/2016 8:55:00 PM Dilaudid [IVP] IVP 1 mg, administered: 11/05/2016 10:06:00 PM Levaquin [IVPB] IVPB bolus 0, then 750 mg 100 mL/hr, administered: 11/05/2016 10:21:00 PM Toradol [IVP] IVP 30 mg, administered: 11/05/2016 10:22:00 PM The following Medications were prescribed to the patient: None.
--- NOTE | 2016-11-11 17:44 | ED DISCHARGE INSTRUCTIONS ---
Patient: DENISE ENAMORADO General Instructions [facility] VisitID: [id number] [address] [place] [address] 51y, F Registration Date/Time: 11/05/2016 acute intractable abdominal pain acute colitis. (Electronically signed by Bradley Martinez Dr. 11/11/2016 17:44)
--- NOTE | 2016-11-11 17:44 | ED MED RECONCILIATION SUMMARY ---
Patient: DENISE ENAMORADO Medication Reconciliation Report [facility] VisitID: [id number] [address] [place] [address] 51y, F Registration Date/Time: 11/05/2016 Weight: 90.7 kg Height/Length: 73 in. BMI: 26.4 ALLERGIES: Aspirin, Latex, Penicillins, plastic tape , Strawberries, Walnuts The patient's Home Medications are listed below: THE FOLLOWING MEDICATIONS NEED TO BE RECONCILED: Calcium + D Oral CeleBREX Oral (200 mg) 1 capsule Cyclobenzaprine HCl Oral (5 mg) 1 tablet Dilaudid Oral (2 mg) 2 tablets, PRN Diltiazem HCl Oral (120 mg) Docusate Calcium Oral 100mg Ferrous Sulfate Oral, 2x a day Gabapentin Oral 300 mg Hydrochlorothiazide Oral (12.5 mg) 1 tablet, daily Levothyroxine Sodium Oral (25 mcg) 1 tablet, daily Lidoderm External (5 %) Lisinopril Oral 2.5 mg, daily Loratadine Oral (10 mg) Meclizine HCl Oral 25 mg MetFORMIN HCl Oral (500 mg), 3x a day MetroCream External (0.75 %) Ondansetron HCl Oral (4 mg) 1 tablet Oxycodone-Acetaminophen Oral (5-325 mg) 1 tablet, 2x a day Pantoprazole Sodium Oral (40 mg) 1 tablet, daily Plavix Oral (75 mg) Pravastatin Sodium Oral (40 mg) Prazosin HCl Oral (1 mg) 1 capsules, at bedtime Ranitidine HCl Oral 150 mg, 2x a day SEROquel Oral (300 mg), 2x a day, 1 tab by mouth every morning 1.5 tabs by mouth every evening Triamcinolone Acetonide External (0.5 %), 2x a day Ventolin HFA Inhalation (108 (90 Base) mcg/act) Vistaril Oral (25 mg) 1 capsule Vitamin D3 Oral (1000 unit) 1 tablet Voltaren Transdermal (1 %) The source(s) of the original Home Medication information: Not obtained. The following Medications were given to the patient in the Emergency Department: IV NS IV Fluids bolus 500 mL wide open, then 125 mL/hr, administered: 11/05/2016 8:55:00 PM Dilaudid [IVP] IVP 0.5 mg, administered: 11/05/2016 8:55:00 PM Zofran [IVP] IVP 4 mg, administered: 11/05/2016 8:55:00 PM Dilaudid [IVP] IVP 1 mg, administered: 11/05/2016 10:06:00 PM Levaquin [IVPB] IVPB bolus 0, then 750 mg 100 mL/hr, administered: 11/05/2016 10:21:00 PM Toradol [IVP] IVP 30 mg, administered: 11/05/2016 10:22:00 PM The following Medications were prescribed to the patient: None.
--- NOTE | 2016-11-22 20:59 | DISCHARGE SUMMARY ---
ADMIT DATE: 11/05/2016 DISCHARGE DATE: 11/06/2016 ADMITTING DIAGNOSES: 1. Abdominal pain 2. Hypertension 3. Type 2 diabetes 4. Hypothyroidism 5. Dyslipidemia 6. Depression DISCHARGE DIAGNOSES: 1. Abdominal pain secondary to colitis of the distal descending colon with wall thickening of the ventral gastric antrum, likely due to under distention of the stomach; however, upper endoscopy would exclude benign ulceration or gastritis 2. Gastroparesis BRIEF HISTORY: This is a 51-year-old female with now well-controlled type 2 diabetes, though with complications including gastroparesis and peripheral neuropathy, also with esophageal dysmotility, presenting to the hospital with complaints of worsening abdominal pain. The patient states that she has been experiencing intermittent abdominal pain over the past month. She does have a long-term history of intermittent abdominal pain associated with nausea and vomiting secondary to gastroparesis. We started her on cycles of erythromycin; however, patient cannot take metoclopramide due to possible interactions with her psychiatric medications. I have consulted her psychiatric provider and she is unable to safely change her psychiatric medications. The patient now states the pain is getting worse and it is nonradiating. She says that she recently has been experiencing nausea related to the pain, but has not vomited. The patient states that she cannot vomit since getting her fundoplication done. The patient states that per PCP called her today stating that she might have possible pancreatic inflammation and if her pain is worse to go to the emergency department. The patient denies any current recent diarrhea. She does complain of ongoing constipation. She denies any fevers, but does endorse chills. HOSPITAL COURSE: The patient was admitted to the hospital and monitored overnight. The patient's laboratories were monitored and her amylase, lipase did not elevate during her hospitalization. The patient's other labs were reassuring and patient's pain seemed improved in the morning. The patient was discharged to home with further workup as an outpatient. PHYSICAL EXAMINATION: VITAL SIGNS: Stable. GENERAL: This is a well-appearing patient lying in bed in no apparent distress. HEENT: Head is atraumatic, normocephalic. LUNGS: Clear to auscultation bilaterally. HEART: S1, S2, regular rate and rhythm. No S3, S4, murmurs, gallops, or rubs. ABDOMEN: Soft, nontender, nondistended without hepatosplenomegaly or masses. Bowel sounds are active. EXTREMITIES: There is no peripheral edema. DISCHARGE INSTRUCTIONS/MEDICATIONS: Discharge plan: The patient was discharged to home with instructions to follow up with gastroenterology for an esophagogastroduodenoscopy and a colonoscopy as an outpatient. Diet: The patient was instructed to eat easy to digest small frequent meals given her gastroparesis. Activity: Up ad radha. Medications: Resume all home medications.
== END 2016-11-06 19:00 | disposition home or self-care (01) ==
LOC: ED SRH 19:21 → ACUTE2 SRH 22:11 → TRANS SRH 22:11 → ACUTE2 SRH 23:29
PROVIDERS: ADMIT Family Medicine
DX: K52.9 Noninfective gastroenteritis and colitis, unspecified (principal); E11.43 Type 2 diabetes mellitus with diabetic autonomic (poly)neuropathy; K31.84 Gastroparesis; K22.4 Dyskinesia of esophagus; E11.42 Type 2 diabetes mellitus with diabetic polyneuropathy; Z79.4 Long term (current) use of insulin; I10 Essential (primary) hypertension; E03.9 Hypothyroidism, unspecified; E78.5 Hyperlipidemia, unspecified; F31.9 Bipolar disorder, unspecified; R11.2 Nausea with vomiting, unspecified
CPT/HCPCS: 29230; 29242; 29243; 29244; 29247; 29248; 29263; 90004; 90047; 90074; 90098; 90100; 90616; 90648; 91023; 92235; 92530; 92720; 93140; 95059

== ENCOUNTER 2017-02-26 10:37 | Emergency (ER) | payer OTHER ==
[~2017-02-26 10:37] MED LIST changes: +ATIVAN0.5 MG PO; +CELEBREX200 MG PO; +CYCLOBENZAPRINE5 MG PO; +DILT-XR120 MG PO; +DOCQLACE100 MG PO; +ERY-TAB500 MG PO; +HYDROCHLOROTH12.5 MG PO; +HYDROMORPHONE HC2 MG PO; +LIDODERM5 % TOP; +METROCREAM0.75 %; +ONDANSETRON ODT4 MG PO; +PANTOPRAZOLE SO40 MG PO; +SEROQUEL200 MG PO; +TRIAMCINOLONE A; +VISTARIL25 MG PO; +VITAMIN D1000 UNIT PO
--- NOTE | 2017-02-26 11:57 | DIAGNOSTIC IMAGING REPORT ---
PROCEDURE: XR CHEST 1 VIEW INDICATION: OVERDOSE TECHNIQUE: Portable AP view 11:09 a.m. COMPARISON: Chest 03/02/2016 FINDINGS: Mild lingular scarring. Thickened mildly elevated minor fissure, unchanged. Cardiovascular structures are normal. Mild dextroconvex scoliosis of the mid thoracic spine IMPRESSION: 1. No acute changes 2. Mild lingular scarring
--- NOTE | 2017-02-26 13:21 | ED ORDER SUMMARY ---
..... Patient: DENISE ENAMORADO OrderSheet [facility] VisitID: [id number] [place] [address] 51y, F Registration Date/Time: 02/26/2017 ORDER SHEET Weight: 99.3 kg (stated) Allergies: Aspirin, Latex, Penicillins, plastic tape , Strawberries, Walnuts GENERAL ORDERS: Chest 1V Urgent (10:58 02/26/2017 Malathi JOY) (Ack 11:01 PWeiler ER Tech1) (13:52 LNations ER Tech1) CBC w Diff Urgent (10:59 02/26/2017 Malathi JOY) (Ack 11:01 PWteresa ER TechJesse) (13:37 PWeiler ER Tech1) CMP Urgent (10:59 02/26/2017 Malathi JOY) (Ack 11:01 Janae ER TechJesse) (13:37 PWeiler ER Tech1) UA-Culture if indicated Urgent (10:59 02/26/2017 Malathi JOY) (Ack 11:01 VLADIMIReieduard ER TechJesse) (12:38 KWilliams R.N.) PT with INR Urgent (10:59 02/26/2017 Malathi JOY) (Ack 11:01 Janae GARDNER TechJesse) (13:37 PWeiler ER Tech1) PTT Urgent (10:59 02/26/2017 Malathi JOY) (Ack 11:01 Janae ER TechJesse) (13:37 PWeiler ER Tech1) Amylase Urgent (10:02/26/2017 Malathi JOY) (Ack 11:01 Janae ER TechJesse) (13:37 PWeiler ER Tech1) Lipase Urgent (10:59 02/26/2017 Malathi JOY) (Ack 11:01 Janae GARDNER TechJesse) (13:37 PWeiler ER Tech1) CPK Urgent (10:59 02/26/2017 Malathi JOY) (Ack 11:01 Janae ER TechJesse) (13:37 PWeiler ER Tech1) Troponin-I Urgent (10:59 02/26/2017 Malathi JOY) (Ack 11:01 PWeiler ER Tech1) (13:37 PWeiler ER Tech1) Acetaminophen Level Urgent (10:59 02/26/2017 Malathi JOY) (Ack 11:01 PWeiler ER Tech1) (13:37 PWeiler ER Tech1) Salicylate Level Urgent (10:59 02/26/2017 Malathi JOY) (Ack 11:01 PWeiler ER Tech1) (13:37 PWeiler ER Tech1) Urine Urgent (10:59 02/26/2017 Malathi JOY) (Cancelled: Other10:59 Malathi JOY) Urine Drug Screen Urgent (10:59 02/26/2017 Malathi JOY) (Ack 11:01 PWeieduard ER Tech1) (13:37 PWeiler ER Tech1) Ethyl Alcohol Urgent (10:59 02/26/2017 Malathi JOY) (Ack 11:01 PWeiler ER Tech1) (13:37 PWeiler ER Tech1) TSH Urgent (11:01 02/26/2017 Malathi JOY) (Ack 11:02 VLADIMIReiler ER Tech1) (13:37 VLADIMIReiler ER Tech1) MEDICATION ORDERS: IV FLUIDS: IV NS : initial bolus 500 mL (1000 mL/hr), then 125 mL/hr for 4h (NOW); Urgent (10:58 02/26/2017 Malathi JOY) (11:06 Merlyn Shane.NRaza) ORDER SHEET NOTES: [Electronically signed by Tino Bailey MD (13:49 02/26/2017)] [Electronically signed by Sheriff Parish Jenkins (13:54 02/26/2017)] [Electronically locked/signed by Sheriff Parish Jenkins (13:54 02/26/2017)]
--- NOTE | 2017-02-26 13:21 | ED ORDER SUMMARY ---
..... Patient: DENISE ENAMORADO OrderSheet [facility] VisitID: [id number] [place] [address] 51y, F Registration Date/Time: 02/26/2017 ORDER SHEET Weight: 99.3 kg (stated) Allergies: Aspirin, Latex, Penicillins, plastic tape , Strawberries, Walnuts GENERAL ORDERS: Chest 1V Urgent (10:58 02/26/2017 Malathi JOY) (Ack 11:01 PWeiler ER Tech1) (13:52 LNations ER Tech1) CBC w Diff Urgent (10:59 02/26/2017 Malathi JOY) (Ack 11:01 PWteresa ER TechJesse) (13:37 PWeiler ER Tech1) CMP Urgent (10:59 02/26/2017 Malathi JOY) (Ack 11:01 Janae ER TechJesse) (13:37 PWeiler ER Tech1) UA-Culture if indicated Urgent (10:59 02/26/2017 Malathi JOY) (Ack 11:01 VLADIMIReieduard ER TechJesse) (12:38 KWilliams R.N.) PT with INR Urgent (10:59 02/26/2017 Malathi JOY) (Ack 11:01 Janae GARDNER TechJesse) (13:37 PWeiler ER Tech1) PTT Urgent (10:59 02/26/2017 Malathi JOY) (Ack 11:01 Janae ER TechJesse) (13:37 PWeiler ER Tech1) Amylase Urgent (10:02/26/2017 Malathi JOY) (Ack 11:01 Janae ER TechJesse) (13:37 PWeiler ER Tech1) Lipase Urgent (10:59 02/26/2017 Malathi JOY) (Ack 11:01 Janae GARDNER TechJesse) (13:37 PWeiler ER Tech1) CPK Urgent (10:59 02/26/2017 Malathi JOY) (Ack 11:01 Janae ER TechJesse) (13:37 PWeiler ER Tech1) Troponin-I Urgent (10:59 02/26/2017 Malathi JOY) (Ack 11:01 PWeiler ER Tech1) (13:37 PWeiler ER Tech1) Acetaminophen Level Urgent (10:59 02/26/2017 Malathi JOY) (Ack 11:01 PWeiler ER Tech1) (13:37 PWeiler ER Tech1) Salicylate Level Urgent (10:59 02/26/2017 Malathi JOY) (Ack 11:01 PWeiler ER Tech1) (13:37 PWeiler ER Tech1) Urine Urgent (10:59 02/26/2017 Malathi JOY) (Cancelled: Other10:59 Malathi JOY) Urine Drug Screen Urgent (10:59 02/26/2017 Malathi JOY) (Ack 11:01 PWeieduard ER Tech1) (13:37 PWeiler ER Tech1) Ethyl Alcohol Urgent (10:59 02/26/2017 Malathi JOY) (Ack 11:01 PWeiler ER Tech1) (13:37 PWeiler ER Tech1) TSH Urgent (11:01 02/26/2017 Malathi JOY) (Ack 11:02 VLADIMIReiler ER Tech1) (13:37 VLADIMIReiler ER Tech1) MEDICATION ORDERS: IV FLUIDS: IV NS : initial bolus 500 mL (1000 mL/hr), then 125 mL/hr for 4h (NOW); Urgent (10:58 02/26/2017 Malathi JOY) (11:06 Merlyn Shane.NRaza) ORDER SHEET NOTES: [Electronically signed by Tino Bailey MD (13:49 02/26/2017)] [Electronically signed by Sheriff Parish Jenkins (13:54 02/26/2017)] [Electronically locked/signed by Sheriff Parish Jenkins (13:54 02/26/2017)]
--- NOTE | 2017-02-26 13:21 | ED CLINICAL REPORT ---
Clinical Report - Physicians/Mid Levels [facility] [address] [place] [address] 02/26/2017 10:38 Patient: DENISE ENAMORADO Time Seen: 10:40. Arrived- By private vehicle. Historian- patient. HISTORY OF PRESENT ILLNESS Chief Complaint: DRUG OVERDOSE. This occurred just prior to arrival. Toxic symptoms present in ED with nausea. Multiple drugs taken- Oxycodone- hydromorphone. (the patient recently underwent a right total knee replacement performed by Dr. Maldonado orthopedic surgeon. She was prescribed Dilaudid 2 mg tablets. Instructions state that she is to take one tablet every 4 hours for the first 2 days and then 2 tablets every 4 hours thereafter. Her mother misunderstood the instructions and was giving her 4 tablets every 4 hours. Additionally, this morning the patient took 2 Percocet tablets that she had left over from a previous prescription.). REVIEW OF SYSTEMS No chills, fever, sweats, calf pain or chest pain. No cough, difficulty breathing, pedal edema, palpitations or abdominal pain. No vomiting or urinary problems. She has had diarrhea and nausea. She has had mild joint pain, involving the right knee. All systems otherwise negative, except as recorded above. PAST HISTORY Problems: Irritable Bowel Syndrome. PTSD. Bipolar Disorder. Personality Disorder. Depression. TMJ Syndrome. Chest Pain. Migraine Headache. Heart Murmur. TIA - Transient Ischemic Attack. Pleurisy. Sleep Apnea. Tension-Type Headache. Headache. Diabetes Mellitus. Hypertension. Additional Surgeries: Abdominal Hernia Repair. Appendectomy. Cholecystectomy. Esophagus surgery. Hysterectomy. Ortho surgeries. Umbilical Hernia Repair. Medications: Hydrochlorothiazide Oral (Tablet 12.5 mg) 1 tablet, daily. Levothyroxine Sodium Oral (Tablet 25 mcg) 1 tablet, daily. Lidoderm External (Patch 5 %). Lisinopril Oral 2.5 mg, daily. Loratadine Oral (Tablet 10 mg). Meclizine HCl Oral 25 mg, as needed. MetFORMIN HCl Oral (Tablet 500 mg), 3x a day. MetroCream External (Cream 0.75 %). Ondansetron HCl Oral (Tablet 4 mg) 1 tablet. Oxycodone-Acetaminophen Oral (Tablet 5-325 mg) 1 tablet, 2x a day. Pantoprazole Sodium Oral (Tablet Delayed Release 40 mg) 1 tablet, daily. Plavix Oral (Tablet 75 mg). Pravastatin Sodium Oral (Tablet 40 mg). Prazosin HCl Oral (Capsule 1 mg) 1 capsules, at bedtime. Ranitidine HCl Oral 150 mg, 2x a day. SEROquel Oral (Tablet 300 mg), 2x a day (1 tab by mouth every morning 1.5 tabs by mouth every evening). Triamcinolone Acetonide External (Cream 0.5 %), 2x a day as needed. Ventolin HFA Inhalation (Aerosol Solution 108 (90 Base) mcg/act). Vistaril Oral (Capsule 25 mg) 1 capsule. Vitamin D3 Oral (Tablet 1000 unit) 1 tablet. Voltaren Transdermal (Gel 1 %). Calcium + D Oral. CeleBREX Oral (Capsule 200 mg) 1 capsule, as needed. Cyclobenzaprine HCl Oral (Tablet 5 mg) 1 tablet, as needed. Dilaudid Oral (Tablet 2 mg) 2 tablets, PRN as needed. Diltiazem HCl Oral (Tablet 120 mg). Docusate Calcium Oral 100mg. Ferrous Sulfate Oral, 2x a day. Gabapentin Oral 300 mg. Allergies: Aspirin. Latex. Penicillins. plastic tape . Strawberries. Walnuts. SOCIAL HISTORY Never smoker. No alcohol use or drug use. FAMILY HISTORY No significant family medical history. ADDITIONAL NOTES The nursing notes have been reviewed. PHYSICAL EXAM Vital Signs: 02/26/2017 10:49 BP: 121/86. HR: 112. RR: 18. O2 saturation: 98%. Temp: 98 F. Pain level now: 10/19. Have been reviewed. Appearance: Alert. Eyes: Pupils equal, round and reactive to light. ENT: Pharynx normal. Neck: Neck supple. CVS: Normal heart rate and rhythm. Heart sounds normal. Respiratory: No respiratory distress. Breath sounds normal. Abdomen: Soft and nontender. No organomegaly. Back: Normal inspection. Skin: The patient has a single large surgical scar on the right knee (Clean dry and intact with no drainage, Steri-Strips are in place.). Extremities: No calf tenderness. Neuro: Alert. Speech normal. No cerebellar findings. No motor deficit. No sensory deficit. LABS, X-RAYS, AND EKG Laboratory Tests: UA-Culture if indicated: (SINA: 02/26/2017 12:37) ( [facility] 02/26/2017 12:48) Final results Test Result Flag Units (Reference) URINE COLOR YELLOW URINE APPEARANCE CLEAR URINE GLUCOSE NEGATIVE (NEGATIVE) URINE BILIRUBIN 1+ (NEGATIVE) URINE KETONE 2+ (NEGATIVE) URINE SPECIFIC GRAVITY >= 1.030 (1.010-1.030) URINE PH 6.0 (5.0-8.0) URINE PROTEIN NEGATIVE (NEGATIVE) URINE UROBILINOGEN 0.2 EU/dL (0.2-1.0) URINE NITRITE NEGATIVE (NEGATIVE) URINE BLOOD 1+ (NEGATIVE) URINE LEUK ESTERASE NEGATIVE (NEGATIVE) URINE RBC 1-3 rbc/hpf (0-1) URINE WBC 1-3 wbc/hpf (0-1) URINE EPITHELIAL CELLS 1-3 EPI/hpf (0-5) URINE BACTERIA FEW (1+) (NONE SEEN) URINE COMMENT CULT NOT INDICATED 1mL SPECIMENURINE CULTURES ARE SET-UP BASED ON THE FOLLOWING CRITERIA:POSITIVE NITRITEPOSITIVE LEUKOCYTE ESTERASEGREATER THAN 10 WHITE BLOOD CELLSMODERATE (2+) OR GREATER BACTERIA CBC w Diff: (SINA: 02/26/2017 11:00) ( [facility] 02/26/2017 11:25) Final results Test Result Flag Units (Reference) WHITE BLOOD COUNT 15.0 H K/uL (4.5-11.5) RED BLOOD COUNT 5.11 M/uL (4.00-5.20) HEMOGLOBIN 14.5 gm/dL (12.0-16.0) HEMATOCRIT 45.3 % (36.0-46.0) MEAN CELL VOLUME 89 fL (80-100) MEAN CORPUSCULAR HGB 28 pg (26-34) MEAN CORPUSCULAR HGB CONC 32 g/dL (31-37) RED CELL DISTRIBUTION WIDTH 14.0 % (11.6-14.8) PLATELET COUNT 196 K/uL (150-400) LYMPH % 25.4 % (25-40) MONO % 2.0 L % (3-14) GRANULOCYTE % 72.6 (53-90) PT with INR: (SINA: 02/26/2017 11:00) ( [facility] 02/26/2017 11:28) Final results Test Result Flag Units (Reference) INR 1.0 (0.8-1.2) Low Intensity Therapy: INR 1.5-2.0 PT range 18.5-23.1Mod.Intensity Therapy: INR 2.0-3.0 PT range 23.1-31.5High Intensity Therapy: INR 2.5-3.5 PT range 27.4-35.5High Intensity Therapy 2: INR 3.0-4.0 PT range 31.5-39.3 APTT < 21 L SECONDS (24-34) [id number]: (SINA: 02/26/2017 12:37) ( [facility] 02/26/2017 13:05) Final results Test Result Flag Units (Reference) URINE DRUG SCREEN POSITIVE,Unconfirmed DRUGS DETECTED: Opiates The urine drug screen is a qualitative screening test fordrug overdose and abuse. All screen results should beconsidered as presumptive.Drugs screened for are as follows:BenzodiazepinesCocaineAmphetamines/MetamphetaminesTHC (Tetrahydrocannabinol)OpiatesBarbituratesTCA (Tricyclic Antidepressants)MethadonePositive results are unconfirmed. For confirmation, notifythe lab for the specimen to be sent to the reference lab.All confirmations must be performed by a differentmethodology.The ingestion of natural herbal and plant productscontaining Ephedra/Ephedra metabolites can produce in urineone or more substances capable of cross reacting withamphetamine/methamphetamine immunoassays. This testprovides a preliminary result only. A more specificalternative chemical method must be used to obtain aconfirmed analytical result. Salicylate Level: (SINA: 02/26/2017 11:00) ( [facility] 02/26/2017 11:33) Final results Test Result Flag Units (Reference) SALICYLATE <2.8 L mg/dL (2.8-20) CMP: (SINA: 02/26/2017 11:00) ( MsgRcvd 02/26/2017 11:48) Final results Test Result Flag Units (Reference) GLUCOSE 125 H mg/dL (70-110) BUN 18 mg/dL (7-18) CREATININE 0.8 mg/dL (0.6-1.3) Estimated GFR >60 mL/min Estimated GFR- >60 mL/min Note: Persistent reduction over 3 months in eGFR<60 mL/min/1.73 m2 defines CKD. Patients with eGFR values>=60 mL/min/1.73 m2 may also have CKD if evidence ofpersistent proteinuria. Additional information may be foundat www.kidney.org. SODIUM 140 mmol/L (136-145) POTASSIUM 3.4 L mmol/L (3.5-5.1) CHLORIDE 103 mmol/L (98-107) CARBON DIOXIDE 25 mmol/L (21-32) CALCIUM 9.4 mg/dL (8.5-10.1) TOTAL PROTEIN 7.9 g/dL (6.4-8.2) ALBUMIN 3.9 g/dL (3.3-5.0) BILIRUBIN, TOTAL 0.4 mg/dL (0.0-1.0) ALKALINE PHOSPHATASE 78 U/L (46-116) AST (SGOT) 21 U/L (15-37) ALT (SGPT) 20 U/L (12-78) LIPASE 85 U/L (73-393) AMYLASE 13 L U/L (25-115) CPK 47 U/L (24-260) TROPONIN I <0.05 L ng/mL (0.00-1.5) TROPONIN REFERENCE RANGE:<0.1 NEGATIVE0.1-1.5 INDETERMINANT>1.5 POSITIVE ACETAMINOPHEN < 2.0 L ug/mL (10-30) ETHYL ALCOHOL < 3.0 L mg/dL (3-10) THYROID STIMULATING HORMONE 1.166 uIU/mL (0.34-3.74) . PROGRESS AND PROCEDURES Course of Care: Patient is stable. Patient/family counseled. Old medical records reviewed. Disposition: Discharged. Condition: stable. CLINICAL IMPRESSION Accidental multi-drug overdose with oxycodone (hydromorphone). INSTRUCTIONS No driving or operating machinery. Stay with responsible adult family member (or other responsible adult). Warnings: Further evaluation is necessary. GENERAL WARNINGS: Return or contact your physician immediately if your condition worsens or changes unexpectedly, if not improving as expected, or if other problems arise. Your Current Medications: CONTINUE TAKING THE FOLLOWING MEDICATIONS: Calcium + D Oral. CeleBREX Oral : Capsule 200 mg, 1 capsule, prn. Diltiazem HCl Oral : Tablet 120 mg. Docusate Calcium Oral : 100mg. Ferrous Sulfate Oral : 2x a day. Gabapentin Oral : 300 mg. Hydrochlorothiazide Oral : Tablet 12.5 mg, 1 tablet daily. Levothyroxine Sodium Oral : Tablet 25 mcg, 1 tablet daily. Lidoderm External : Patch 5 %. Lisinopril Oral : 2.5 mg daily. Loratadine Oral : Tablet 10 mg. Meclizine HCl Oral : 25 mg, prn. MetFORMIN HCl Oral : Tablet 500 mg, 3x a day. MetroCream External : Cream 0.75 %. Ondansetron HCl Oral : Tablet 4 mg, 1 tablet. Pantoprazole Sodium Oral : Tablet Delayed Release 40 mg, 1 tablet daily. Plavix Oral : Tablet 75 mg. Pravastatin Sodium Oral : Tablet 40 mg. Prazosin HCl Oral : Capsule 1 mg, 1 capsules at bedtime. Ranitidine HCl Oral : 150 mg 2x a day. Triamcinolone Acetonide External : Cream 0.5 %, 2x a day, prn. Ventolin HFA Inhalation : Aerosol Solution 108 (90 Base) mcg/act. Vistaril Oral : Capsule 25 mg, 1 capsule. Vitamin D3 Oral : Tablet 1000 unit, 1 tablet. Voltaren Transdermal : Gel 1 %. CONTINUE TAKING THE FOLLOWING MEDICATIONS UNTIL YOU CHECK WITH YOUR PHYSICIAN: Cyclobenzaprine HCl Oral : Tablet 5 mg, 1 tablet, prn. Dilaudid Oral : Tablet 2 mg, 2 tablets PRN, prn. Understanding of the discharge instructions verbalized by patient and parent. Follow-up with: Halle Zavaleta MD, [facility], , [facility], [address] [place] [address] Follow up in five days. Call for the next available appointment. (Electronically signed by Tino Bailey MD 02/26/2017 13:49)
--- NOTE | 2017-02-26 13:21 | ED CLINICAL REPORT ---
Clinical Report - Physicians/Mid Levels [facility] [address] [place] [address] 02/26/2017 10:38 Patient: DENISE ENAMORADO Time Seen: 10:40. Arrived- By private vehicle. Historian- patient. HISTORY OF PRESENT ILLNESS Chief Complaint: DRUG OVERDOSE. This occurred just prior to arrival. Toxic symptoms present in ED with nausea. Multiple drugs taken- Oxycodone- hydromorphone. (the patient recently underwent a right total knee replacement performed by Dr. Maldonado orthopedic surgeon. She was prescribed Dilaudid 2 mg tablets. Instructions state that she is to take one tablet every 4 hours for the first 2 days and then 2 tablets every 4 hours thereafter. Her mother misunderstood the instructions and was giving her 4 tablets every 4 hours. Additionally, this morning the patient took 2 Percocet tablets that she had left over from a previous prescription.). REVIEW OF SYSTEMS No chills, fever, sweats, calf pain or chest pain. No cough, difficulty breathing, pedal edema, palpitations or abdominal pain. No vomiting or urinary problems. She has had diarrhea and nausea. She has had mild joint pain, involving the right knee. All systems otherwise negative, except as recorded above. PAST HISTORY Problems: Irritable Bowel Syndrome. PTSD. Bipolar Disorder. Personality Disorder. Depression. TMJ Syndrome. Chest Pain. Migraine Headache. Heart Murmur. TIA - Transient Ischemic Attack. Pleurisy. Sleep Apnea. Tension-Type Headache. Headache. Diabetes Mellitus. Hypertension. Additional Surgeries: Abdominal Hernia Repair. Appendectomy. Cholecystectomy. Esophagus surgery. Hysterectomy. Ortho surgeries. Umbilical Hernia Repair. Medications: Hydrochlorothiazide Oral (Tablet 12.5 mg) 1 tablet, daily. Levothyroxine Sodium Oral (Tablet 25 mcg) 1 tablet, daily. Lidoderm External (Patch 5 %). Lisinopril Oral 2.5 mg, daily. Loratadine Oral (Tablet 10 mg). Meclizine HCl Oral 25 mg, as needed. MetFORMIN HCl Oral (Tablet 500 mg), 3x a day. MetroCream External (Cream 0.75 %). Ondansetron HCl Oral (Tablet 4 mg) 1 tablet. Oxycodone-Acetaminophen Oral (Tablet 5-325 mg) 1 tablet, 2x a day. Pantoprazole Sodium Oral (Tablet Delayed Release 40 mg) 1 tablet, daily. Plavix Oral (Tablet 75 mg). Pravastatin Sodium Oral (Tablet 40 mg). Prazosin HCl Oral (Capsule 1 mg) 1 capsules, at bedtime. Ranitidine HCl Oral 150 mg, 2x a day. SEROquel Oral (Tablet 300 mg), 2x a day (1 tab by mouth every morning 1.5 tabs by mouth every evening). Triamcinolone Acetonide External (Cream 0.5 %), 2x a day as needed. Ventolin HFA Inhalation (Aerosol Solution 108 (90 Base) mcg/act). Vistaril Oral (Capsule 25 mg) 1 capsule. Vitamin D3 Oral (Tablet 1000 unit) 1 tablet. Voltaren Transdermal (Gel 1 %). Calcium + D Oral. CeleBREX Oral (Capsule 200 mg) 1 capsule, as needed. Cyclobenzaprine HCl Oral (Tablet 5 mg) 1 tablet, as needed. Dilaudid Oral (Tablet 2 mg) 2 tablets, PRN as needed. Diltiazem HCl Oral (Tablet 120 mg). Docusate Calcium Oral 100mg. Ferrous Sulfate Oral, 2x a day. Gabapentin Oral 300 mg. Allergies: Aspirin. Latex. Penicillins. plastic tape . Strawberries. Walnuts. SOCIAL HISTORY Never smoker. No alcohol use or drug use. FAMILY HISTORY No significant family medical history. ADDITIONAL NOTES The nursing notes have been reviewed. PHYSICAL EXAM Vital Signs: 02/26/2017 10:49 BP: 121/86. HR: 112. RR: 18. O2 saturation: 98%. Temp: 98 F. Pain level now: 10/19. Have been reviewed. Appearance: Alert. Eyes: Pupils equal, round and reactive to light. ENT: Pharynx normal. Neck: Neck supple. CVS: Normal heart rate and rhythm. Heart sounds normal. Respiratory: No respiratory distress. Breath sounds normal. Abdomen: Soft and nontender. No organomegaly. Back: Normal inspection. Skin: The patient has a single large surgical scar on the right knee (Clean dry and intact with no drainage, Steri-Strips are in place.). Extremities: No calf tenderness. Neuro: Alert. Speech normal. No cerebellar findings. No motor deficit. No sensory deficit. LABS, X-RAYS, AND EKG Laboratory Tests: UA-Culture if indicated: (SINA: 02/26/2017 12:37) ( [facility] 02/26/2017 12:48) Final results Test Result Flag Units (Reference) URINE COLOR YELLOW URINE APPEARANCE CLEAR URINE GLUCOSE NEGATIVE (NEGATIVE) URINE BILIRUBIN 1+ (NEGATIVE) URINE KETONE 2+ (NEGATIVE) URINE SPECIFIC GRAVITY >= 1.030 (1.010-1.030) URINE PH 6.0 (5.0-8.0) URINE PROTEIN NEGATIVE (NEGATIVE) URINE UROBILINOGEN 0.2 EU/dL (0.2-1.0) URINE NITRITE NEGATIVE (NEGATIVE) URINE BLOOD 1+ (NEGATIVE) URINE LEUK ESTERASE NEGATIVE (NEGATIVE) URINE RBC 1-3 rbc/hpf (0-1) URINE WBC 1-3 wbc/hpf (0-1) URINE EPITHELIAL CELLS 1-3 EPI/hpf (0-5) URINE BACTERIA FEW (1+) (NONE SEEN) URINE COMMENT CULT NOT INDICATED 1mL SPECIMENURINE CULTURES ARE SET-UP BASED ON THE FOLLOWING CRITERIA:POSITIVE NITRITEPOSITIVE LEUKOCYTE ESTERASEGREATER THAN 10 WHITE BLOOD CELLSMODERATE (2+) OR GREATER BACTERIA CBC w Diff: (SINA: 02/26/2017 11:00) ( [facility] 02/26/2017 11:25) Final results Test Result Flag Units (Reference) WHITE BLOOD COUNT 15.0 H K/uL (4.5-11.5) RED BLOOD COUNT 5.11 M/uL (4.00-5.20) HEMOGLOBIN 14.5 gm/dL (12.0-16.0) HEMATOCRIT 45.3 % (36.0-46.0) MEAN CELL VOLUME 89 fL (80-100) MEAN CORPUSCULAR HGB 28 pg (26-34) MEAN CORPUSCULAR HGB CONC 32 g/dL (31-37) RED CELL DISTRIBUTION WIDTH 14.0 % (11.6-14.8) PLATELET COUNT 196 K/uL (150-400) LYMPH % 25.4 % (25-40) MONO % 2.0 L % (3-14) GRANULOCYTE % 72.6 (53-90) PT with INR: (SINA: 02/26/2017 11:00) ( [facility] 02/26/2017 11:28) Final results Test Result Flag Units (Reference) INR 1.0 (0.8-1.2) Low Intensity Therapy: INR 1.5-2.0 PT range 18.5-23.1Mod.Intensity Therapy: INR 2.0-3.0 PT range 23.1-31.5High Intensity Therapy: INR 2.5-3.5 PT range 27.4-35.5High Intensity Therapy 2: INR 3.0-4.0 PT range 31.5-39.3 APTT < 21 L SECONDS (24-34) [id number]: (SINA: 02/26/2017 12:37) ( [facility] 02/26/2017 13:05) Final results Test Result Flag Units (Reference) URINE DRUG SCREEN POSITIVE,Unconfirmed DRUGS DETECTED: Opiates The urine drug screen is a qualitative screening test fordrug overdose and abuse. All screen results should beconsidered as presumptive.Drugs screened for are as follows:BenzodiazepinesCocaineAmphetamines/MetamphetaminesTHC (Tetrahydrocannabinol)OpiatesBarbituratesTCA (Tricyclic Antidepressants)MethadonePositive results are unconfirmed. For confirmation, notifythe lab for the specimen to be sent to the reference lab.All confirmations must be performed by a differentmethodology.The ingestion of natural herbal and plant productscontaining Ephedra/Ephedra metabolites can produce in urineone or more substances capable of cross reacting withamphetamine/methamphetamine immunoassays. This testprovides a preliminary result only. A more specificalternative chemical method must be used to obtain aconfirmed analytical result. Salicylate Level: (SINA: 02/26/2017 11:00) ( [facility] 02/26/2017 11:33) Final results Test Result Flag Units (Reference) SALICYLATE <2.8 L mg/dL (2.8-20) CMP: (SINA: 02/26/2017 11:00) ( MsgRcvd 02/26/2017 11:48) Final results Test Result Flag Units (Reference) GLUCOSE 125 H mg/dL (70-110) BUN 18 mg/dL (7-18) CREATININE 0.8 mg/dL (0.6-1.3) Estimated GFR >60 mL/min Estimated GFR- >60 mL/min Note: Persistent reduction over 3 months in eGFR<60 mL/min/1.73 m2 defines CKD. Patients with eGFR values>=60 mL/min/1.73 m2 may also have CKD if evidence ofpersistent proteinuria. Additional information may be foundat www.kidney.org. SODIUM 140 mmol/L (136-145) POTASSIUM 3.4 L mmol/L (3.5-5.1) CHLORIDE 103 mmol/L (98-107) CARBON DIOXIDE 25 mmol/L (21-32) CALCIUM 9.4 mg/dL (8.5-10.1) TOTAL PROTEIN 7.9 g/dL (6.4-8.2) ALBUMIN 3.9 g/dL (3.3-5.0) BILIRUBIN, TOTAL 0.4 mg/dL (0.0-1.0) ALKALINE PHOSPHATASE 78 U/L (46-116) AST (SGOT) 21 U/L (15-37) ALT (SGPT) 20 U/L (12-78) LIPASE 85 U/L (73-393) AMYLASE 13 L U/L (25-115) CPK 47 U/L (24-260) TROPONIN I <0.05 L ng/mL (0.00-1.5) TROPONIN REFERENCE RANGE:<0.1 NEGATIVE0.1-1.5 INDETERMINANT>1.5 POSITIVE ACETAMINOPHEN < 2.0 L ug/mL (10-30) ETHYL ALCOHOL < 3.0 L mg/dL (3-10) THYROID STIMULATING HORMONE 1.166 uIU/mL (0.34-3.74) . PROGRESS AND PROCEDURES Course of Care: Patient is stable. Patient/family counseled. Old medical records reviewed. Disposition: Discharged. Condition: stable. CLINICAL IMPRESSION Accidental multi-drug overdose with oxycodone (hydromorphone). INSTRUCTIONS No driving or operating machinery. Stay with responsible adult family member (or other responsible adult). Warnings: Further evaluation is necessary. GENERAL WARNINGS: Return or contact your physician immediately if your condition worsens or changes unexpectedly, if not improving as expected, or if other problems arise. Your Current Medications: CONTINUE TAKING THE FOLLOWING MEDICATIONS: Calcium + D Oral. CeleBREX Oral : Capsule 200 mg, 1 capsule, prn. Diltiazem HCl Oral : Tablet 120 mg. Docusate Calcium Oral : 100mg. Ferrous Sulfate Oral : 2x a day. Gabapentin Oral : 300 mg. Hydrochlorothiazide Oral : Tablet 12.5 mg, 1 tablet daily. Levothyroxine Sodium Oral : Tablet 25 mcg, 1 tablet daily. Lidoderm External : Patch 5 %. Lisinopril Oral : 2.5 mg daily. Loratadine Oral : Tablet 10 mg. Meclizine HCl Oral : 25 mg, prn. MetFORMIN HCl Oral : Tablet 500 mg, 3x a day. MetroCream External : Cream 0.75 %. Ondansetron HCl Oral : Tablet 4 mg, 1 tablet. Pantoprazole Sodium Oral : Tablet Delayed Release 40 mg, 1 tablet daily. Plavix Oral : Tablet 75 mg. Pravastatin Sodium Oral : Tablet 40 mg. Prazosin HCl Oral : Capsule 1 mg, 1 capsules at bedtime. Ranitidine HCl Oral : 150 mg 2x a day. Triamcinolone Acetonide External : Cream 0.5 %, 2x a day, prn. Ventolin HFA Inhalation : Aerosol Solution 108 (90 Base) mcg/act. Vistaril Oral : Capsule 25 mg, 1 capsule. Vitamin D3 Oral : Tablet 1000 unit, 1 tablet. Voltaren Transdermal : Gel 1 %. CONTINUE TAKING THE FOLLOWING MEDICATIONS UNTIL YOU CHECK WITH YOUR PHYSICIAN: Cyclobenzaprine HCl Oral : Tablet 5 mg, 1 tablet, prn. Dilaudid Oral : Tablet 2 mg, 2 tablets PRN, prn. Understanding of the discharge instructions verbalized by patient and parent. Follow-up with: Halle Zavaleta MD, [facility], , [facility], [address] [place] [address] Follow up in five days. Call for the next available appointment. (Electronically signed by Tino Bailey MD 02/26/2017 13:49)
--- NOTE | 2017-02-26 13:21 | ED NURSING NOTES ---
Clinical Report - Nurses [facility] [address] [place] [address] 02/26/2017 10:38 Patient: DENISE ENAMORADO TRIAGE Triage time 10:50. Acuity: LEVEL 2. Chief Complaint: DRUG OVERDOSE. --10:56 Sheriff Jenkins R.N. 10:49 02/26/17. BP: 121/86. HR: 112. RR: 18. O2 saturation: 98%. Temp: 98 F. Pain level now: 10/19. --10:56 Sheriff Jenkins R.N. Weight: 99.3 kg stated. Height/Length: 72 inches Per Patient. BMI: 29.7. --10:50 Sheriff Jenkins R.N. Medications Calcium + D Oral. CeleBREX Oral (Capsule 200 mg) 1 capsule, as needed. Cyclobenzaprine HCl Oral (Tablet 5 mg) 1 tablet, as needed. Dilaudid Oral (Tablet 2 mg) 2 tablets, PRN as needed. Diltiazem HCl Oral (Tablet 120 mg). Docusate Calcium Oral 100mg. Ferrous Sulfate Oral, 2x a day. Gabapentin Oral 300 mg. --10:54 Sheriff Jenkins R.N. Hydrochlorothiazide Oral (Tablet 12.5 mg) 1 tablet, daily. Levothyroxine Sodium Oral (Tablet 25 mcg) 1 tablet, daily. Lidoderm External (Patch 5 %). Lisinopril Oral 2.5 mg, daily. Loratadine Oral (Tablet 10 mg). Meclizine HCl Oral 25 mg, as needed. MetFORMIN HCl Oral (Tablet 500 mg), 3x a day. MetroCream External (Cream 0.75 %). Ondansetron HCl Oral (Tablet 4 mg) 1 tablet. Oxycodone-Acetaminophen Oral (Tablet 5-325 mg) 1 tablet, 2x a day. Pantoprazole Sodium Oral (Tablet Delayed Release 40 mg) 1 tablet, daily. Plavix Oral (Tablet 75 mg). Pravastatin Sodium Oral (Tablet 40 mg). Prazosin HCl Oral (Capsule 1 mg) 1 capsules, at bedtime. Ranitidine HCl Oral 150 mg, 2x a day. SEROquel Oral (Tablet 300 mg), 2x a day (1 tab by mouth every morning 1.5 tabs by mouth every evening). Triamcinolone Acetonide External (Cream 0.5 %), 2x a day as needed. Ventolin HFA Inhalation (Aerosol Solution 108 (90 Base) mcg/act). Vistaril Oral (Capsule 25 mg) 1 capsule. Vitamin D3 Oral (Tablet 1000 unit) 1 tablet. Voltaren Transdermal (Gel 1 %). --10:54 Sheriff Jenkins R.N. Allergies Aspirin. Latex. Penicillins. plastic tape . Strawberries. Walnuts. --10:54 Sheriff Jenkins R.N. History Arrived by private vehicle. Historian: patient and family. Accompanied by family and spouse. ( Overdosed on hydromorphone 2mg tabs, missing 37 pills since 02/22/17. She also took unknown quantity of oxycod/Acetam 10-325mg.). SURGERY HX: Appendectomy. Cholecystectomy. Had hysterectomy. ( RT Knee replacement recent, Left Knee.). SOCIAL HX: Never smoker. No alcohol use or drug use. FALL RISK ASSESSMENT: Fall risk assessment completed. No fall risk identified. NUTRITIONAL RISK ASSESSMENT: The nutritional risk assessment revealed no deficiencies. FUNCTIONAL ASSESSMENT: Functional assessment: no impairments noted. LEARNING NEEDS ASSESSMENT: The learning needs assessment revealed no barriers. SKIN INTEGRITY ASSESSMENT: Skin integrity risk assessment completed. No skin integrity risk identified. --10:56 Sheriff Jenkins R.N. PROBLEMS: Irritable Bowel Syndrome. PTSD. Bipolar Disorder. Personality Disorder. Depression. TMJ Syndrome. Chest Pain. LNMP - Last Normal Menstrual Period. Migraine Headache. Heart Murmur. TIA - Transient Ischemic Attack. Pleurisy. Sleep Apnea. Tension-Type Headache. Headache. Diabetes Mellitus. Hypertension. Immunizations. --10:55 Sheriff Jenkins R.N. Interventions ID band on patient. --10:56 Sheriff Jenkins R.N. PHYSICAL ASSESSMENT To room via wheelchair. Patient gowned. GENERAL / NEURO / PSYCH: Alert. Oriented X 4. Patient appears calm and cooperative. Gag reflex present. Speech within normal limits. RESPIRATORY: Respirations not labored. CVS: Capillary refill less than 2 seconds. SKIN: Skin intact. Skin is warm and dry. Skin color is within normal limits. Affect appears within normal limits. --10:57 Sheriff Jenkins R.N. NURSING PROGRESS NOTES Patient gowned. Two patient identifiers checked. Call light placed in reach. Side rails up x 2. Bed placed in lowest position. Brakes of bed on. --10:57 Sheriff Jenkins R.N. 11:02/26/2017 Site #1 started via IV in the right wrist with an 22g angiocath, with aseptic technique and good blood return; one attempt. Blood drawn: rainbow set. Labeled in the presence of the patient and sent to the lab. Saline lock flushed with 10 mL saline. --11: Sheriff Jenkins R.N. 11:02/26/2017 Started bag #1 1000 mL IV Fluids IV NS (Saline); at 1000 mL/hr over 1 hour(s) via site #1 via IV pump. Allergies verified and confirmed 5 rights. IV patency established. IV site checked: no pain, redness, or swelling. IV flushed thoroughly pre- and post-medication administration. --11:06 Sheriff Jenkins R.N. ( pt. ask and is given a commode. Also given a clean depends ,warm wipes. mother ask for cream for daughters bottom.). --11:26 Maricel Tapia, KENDRA Tech1 12:47 02/26/17. BP: 142/88. HR: 101. RR: 8. O2 saturation: 95%. Temp: 98.2 F. --12:51 Sheriff Jenkins R.N. DISPOSITION / DISCHARGE Condition at departure: stable. No learning barriers present. Discharge instructions provided and reviewed with the patient. Reviewed medication(s) side effects, precautions and dosing information. Prescription(s) given to the patient. Patient verbalized understanding. Written instructions provided in Georgian. The patient was discharged by the physician. She was discharged home and accompanied by spouse. She left the Emergency Department in a wheelchair and via private vehicle. --13:53 Sheriff Jenkins R.N. 13:51 02/26/17. BP: 141/76. HR: 76. RR: 18. O2 saturation: 95%. Temp: 98.4 F. Pain level now: 12/17. --13:53 Sheriff Jenkins R.N. Locked/Released at 02/26/2017 13:54 by Sheriff Jenkins R.N.
--- NOTE | 2017-02-26 13:55 | ED MED RECONCILIATION SUMMARY ---
Patient: DENISE ENAMORADO Medication Reconciliation Report [facility] VisitID: [id number] [place] [address] 51y, F Registration Date/Time: 02/26/2017 Weight: 99.3 kg Height/Length: 72 in. BMI: 29.7 ALLERGIES: Aspirin, Latex, Penicillins, plastic tape , Strawberries, Walnuts The patient's Home Medications are listed below: CONTINUE TAKING THE FOLLOWING MEDICATIONS: Calcium + D Oral CeleBREX Oral (200 mg) 1 capsule Diltiazem HCl Oral (120 mg) Docusate Calcium Oral 100mg Ferrous Sulfate Oral, 2x a day Gabapentin Oral 300 mg Hydrochlorothiazide Oral (12.5 mg) 1 tablet, daily Levothyroxine Sodium Oral (25 mcg) 1 tablet, daily Lidoderm External (5 %) Lisinopril Oral 2.5 mg, daily Loratadine Oral (10 mg) Meclizine HCl Oral 25 mg MetFORMIN HCl Oral (500 mg), 3x a day MetroCream External (0.75 %) Ondansetron HCl Oral (4 mg) 1 tablet Pantoprazole Sodium Oral (40 mg) 1 tablet, daily Plavix Oral (75 mg) Pravastatin Sodium Oral (40 mg) Prazosin HCl Oral (1 mg) 1 capsules, at bedtime Ranitidine HCl Oral 150 mg, 2x a day Triamcinolone Acetonide External (0.5 %), 2x a day Ventolin HFA Inhalation (108 (90 Base) mcg/act) Vistaril Oral (25 mg) 1 capsule Vitamin D3 Oral (1000 unit) 1 tablet Voltaren Transdermal (1 %) CONTINUE TAKING THE FOLLOWING MEDICATIONS UNTIL YOU CHECK WITH YOUR PHYSICIAN: Cyclobenzaprine HCl Oral (5 mg) 1 tablet Dilaudid Oral (2 mg) 2 tablets, PRN THE FOLLOWING MEDICATIONS NEED TO BE RECONCILED: Oxycodone-Acetaminophen Oral (5-325 mg) 1 tablet, 2x a day SEROquel Oral (300 mg), 2x a day, 1 tab by mouth every morning 1.5 tabs by mouth every evening The source(s) of the original Home Medication information: Not obtained. The following Medications were given to the patient in the Emergency Department: IV NS IV Fluids bolus 0, then 1000 mL/hr, administered: 02/26/2017 11:05:00 AM The following Medications were prescribed to the patient: None.
--- NOTE | 2017-02-26 13:55 | ED DISCHARGE INSTRUCTIONS ---
Patient: DENISE ENAMORADO General Instructions [facility] VisitID: [id number] [place] [address] 51y, F Registration Date/Time: 02/26/2017 Accidental multi-drug overdose with oxycodone (hydromorphone). INSTRUCTIONS No driving or operating machinery. Stay with responsible adult family member (or other responsible adult). Warnings: Further evaluation is necessary. GENERAL WARNINGS: Return or contact your physician immediately if your condition worsens or changes unexpectedly, if not improving as expected, or if other problems arise. Your Current Medications: CONTINUE TAKING THE FOLLOWING MEDICATIONS: Calcium + D Oral. CeleBREX Oral : Capsule 200 mg, 1 capsule, prn. Diltiazem HCl Oral : Tablet 120 mg. Docusate Calcium Oral : 100mg. Ferrous Sulfate Oral : 2x a day. Gabapentin Oral : 300 mg. Hydrochlorothiazide Oral : Tablet 12.5 mg, 1 tablet daily. Levothyroxine Sodium Oral : Tablet 25 mcg, 1 tablet daily. Lidoderm External : Patch 5 %. Lisinopril Oral : 2.5 mg daily. Loratadine Oral : Tablet 10 mg. Meclizine HCl Oral : 25 mg, prn. MetFORMIN HCl Oral : Tablet 500 mg, 3x a day. MetroCream External : Cream 0.75 %. Ondansetron HCl Oral : Tablet 4 mg, 1 tablet. Pantoprazole Sodium Oral : Tablet Delayed Release 40 mg, 1 tablet daily. Plavix Oral : Tablet 75 mg. Pravastatin Sodium Oral : Tablet 40 mg. Prazosin HCl Oral : Capsule 1 mg, 1 capsules at bedtime. Ranitidine HCl Oral : 150 mg 2x a day. Triamcinolone Acetonide External : Cream 0.5 %, 2x a day, prn. Ventolin HFA Inhalation : Aerosol Solution 108 (90 Base) mcg/act. Vistaril Oral : Capsule 25 mg, 1 capsule. Vitamin D3 Oral : Tablet 1000 unit, 1 tablet. Voltaren Transdermal : Gel 1 %. CONTINUE TAKING THE FOLLOWING MEDICATIONS UNTIL YOU CHECK WITH YOUR PHYSICIAN: Cyclobenzaprine HCl Oral : Tablet 5 mg, 1 tablet, prn. Dilaudid Oral : Tablet 2 mg, 2 tablets PRN, prn. Understanding of the discharge instructions verbalized by patient and parent. Follow-up with: Halle Zavaleta MD, [facility], , [facility], [address] [facility] [address] [place] [address] Follow up in five days. Call for the next available appointment. ADDITIONAL INFORMATION Accidental Ingestion:Non-Toxic [Adult] You have been evaluated and treated for taking too much of a medicine or swallowing a chemical product. There is no sign of toxic effect at this time. It is very unlikely that any new symptoms will appear. As a safeguard, you must be alert for symptoms during the next 24 hours (see below). The exact symptom will depend on what was swallowed. Home Care: If LIQUID CHARCOAL was given to neutralize what was swallowed, it will cause a black color to the stools for 1-2 days. Usually, a laxative (sorbitol) is given with charcoal to speed the removal of any toxins from the intestinal tract. This may cause diarrhea for up to 24 hours. If no laxative was given with charcoal, you may get constipated. If this occurs, you may take an pfhg-gxk-nlczwby laxative such as Dulcolax pills or suppository. Prevention: Keep medicines, pesticides, and other household chemicals in their original containers. Clearly rolando all harmful products if a different bottle is used. Follow Up with your doctor if all symptoms do not resolve within 24 hours or if constipation is not relieved by one or two doses of laxatives. Get Prompt Medical Attention if any of the following occur: Excess drowsiness or inability to be awakened Rapid heart beat, shakiness or seizure Fast breathing (over 25 breaths/minute) or slow breathing (less than 8 breaths/minute) Feeling shortness of breath Fever of 100.4F (38C) or higher, or as directed by your healthcare provider Vomiting or diarrhea for more than 24 hours Blood in stools or vomit (black or red color) Chest or abdominal pain Dizziness, weakness or fainting Opiate Overdose You have been treated for an overdose of opiates (such as a prescription pain medicine or heroin).Taking too much opiates is dangerous because they cause breathing to slow and possibly stop.If you stop breathing for more than 2-3 minutes, your heart will stop and you will . If your overdose was severe, you may have received an antidote called Narcan (naloxone). The antidote effect lasts for about 1-2 hours.If the opiate has not left your system by the time the Narcan wears off your symptoms may return (such as drowsiness and slow breathing). If you were addicted and physically dependent on opiates, then Narcan may cause withdrawal symptoms to appear immediately.These may consist of body aches, diarrhea, abdominal cramps, nausea, vomiting, runny nose, sneezing, sweating, yawning, restlessness, irritability, or trembling.These symptoms will go away as the Narcan wears off. Home Care Rest for the next [address] or operate any vehicle or dangerous equipment until all narcotic effects have worn off and you are no longer feeling sleepy or drowsy. If you were previously prescribed narcotic medicines for pain, do not take any more of this medicine for the next 6-8 hours, unless told otherwise. If narcotics or other drugs were swallowed, you may have been given liquid charcoal to neutralize those drugs.The charcoal may cause nausea and vomiting over the next few hours. It will also cause a black color to your stools for the next 1-2 days. Usually, a laxative is given with charcoal to speed the removal of any toxins from the intestinal tract. This may cause diarrhea for up to 24 hours. If no laxative was given, there may be a tendency toward constipation. If this occurs, you may take an vult-vmh-dpeurdh laxative such as Dulcolax pills or suppository, or Milk of Magnesia. Follow Up with your doctor if all symptoms do not resolve within 24 hours or if constipation is not relieved after two doses of laxatives.If your overdose was related to a drug addiction, seek drug counseling. Consider a drug treatment program to help you break your habit. Return Promptly or contact your doctor if any of the following occur: Excess drowsiness or inability to be awakened Slow breathing under 8 breaths per minute Shortness of breath or cough with colored sputum Fever over 100.4F (38.0C) oral Redness, swelling or tenderness at the heroin injection site Feeling that you might harm yourself or another You have been given the following additional information: Overdose, Accidental (Adult) Overdose, Opiate No driving or operating machinery. Stay with responsible adult family member (or other responsible adult). (Electronically signed by Tino Bailey MD 02/26/2017 13:49)
--- NOTE | 2017-02-26 13:55 | ED MED RECONCILIATION SUMMARY ---
Patient: DENISE ENAMORADO Medication Reconciliation Report [facility] VisitID: [id number] [place] [address] 51y, F Registration Date/Time: 02/26/2017 Weight: 99.3 kg Height/Length: 72 in. BMI: 29.7 ALLERGIES: Aspirin, Latex, Penicillins, plastic tape , Strawberries, Walnuts The patient's Home Medications are listed below: CONTINUE TAKING THE FOLLOWING MEDICATIONS: Calcium + D Oral CeleBREX Oral (200 mg) 1 capsule Diltiazem HCl Oral (120 mg) Docusate Calcium Oral 100mg Ferrous Sulfate Oral, 2x a day Gabapentin Oral 300 mg Hydrochlorothiazide Oral (12.5 mg) 1 tablet, daily Levothyroxine Sodium Oral (25 mcg) 1 tablet, daily Lidoderm External (5 %) Lisinopril Oral 2.5 mg, daily Loratadine Oral (10 mg) Meclizine HCl Oral 25 mg MetFORMIN HCl Oral (500 mg), 3x a day MetroCream External (0.75 %) Ondansetron HCl Oral (4 mg) 1 tablet Pantoprazole Sodium Oral (40 mg) 1 tablet, daily Plavix Oral (75 mg) Pravastatin Sodium Oral (40 mg) Prazosin HCl Oral (1 mg) 1 capsules, at bedtime Ranitidine HCl Oral 150 mg, 2x a day Triamcinolone Acetonide External (0.5 %), 2x a day Ventolin HFA Inhalation (108 (90 Base) mcg/act) Vistaril Oral (25 mg) 1 capsule Vitamin D3 Oral (1000 unit) 1 tablet Voltaren Transdermal (1 %) CONTINUE TAKING THE FOLLOWING MEDICATIONS UNTIL YOU CHECK WITH YOUR PHYSICIAN: Cyclobenzaprine HCl Oral (5 mg) 1 tablet Dilaudid Oral (2 mg) 2 tablets, PRN THE FOLLOWING MEDICATIONS NEED TO BE RECONCILED: Oxycodone-Acetaminophen Oral (5-325 mg) 1 tablet, 2x a day SEROquel Oral (300 mg), 2x a day, 1 tab by mouth every morning 1.5 tabs by mouth every evening The source(s) of the original Home Medication information: Not obtained. The following Medications were given to the patient in the Emergency Department: IV NS IV Fluids bolus 0, then 1000 mL/hr, administered: 02/26/2017 11:05:00 AM The following Medications were prescribed to the patient: None.
--- NOTE | 2017-02-26 13:55 | ED DISCHARGE INSTRUCTIONS ---
Patient: DENISE ENAMORADO General Instructions [facility] VisitID: [id number] [place] [address] 51y, F Registration Date/Time: 02/26/2017 Accidental multi-drug overdose with oxycodone (hydromorphone). INSTRUCTIONS No driving or operating machinery. Stay with responsible adult family member (or other responsible adult). Warnings: Further evaluation is necessary. GENERAL WARNINGS: Return or contact your physician immediately if your condition worsens or changes unexpectedly, if not improving as expected, or if other problems arise. Your Current Medications: CONTINUE TAKING THE FOLLOWING MEDICATIONS: Calcium + D Oral. CeleBREX Oral : Capsule 200 mg, 1 capsule, prn. Diltiazem HCl Oral : Tablet 120 mg. Docusate Calcium Oral : 100mg. Ferrous Sulfate Oral : 2x a day. Gabapentin Oral : 300 mg. Hydrochlorothiazide Oral : Tablet 12.5 mg, 1 tablet daily. Levothyroxine Sodium Oral : Tablet 25 mcg, 1 tablet daily. Lidoderm External : Patch 5 %. Lisinopril Oral : 2.5 mg daily. Loratadine Oral : Tablet 10 mg. Meclizine HCl Oral : 25 mg, prn. MetFORMIN HCl Oral : Tablet 500 mg, 3x a day. MetroCream External : Cream 0.75 %. Ondansetron HCl Oral : Tablet 4 mg, 1 tablet. Pantoprazole Sodium Oral : Tablet Delayed Release 40 mg, 1 tablet daily. Plavix Oral : Tablet 75 mg. Pravastatin Sodium Oral : Tablet 40 mg. Prazosin HCl Oral : Capsule 1 mg, 1 capsules at bedtime. Ranitidine HCl Oral : 150 mg 2x a day. Triamcinolone Acetonide External : Cream 0.5 %, 2x a day, prn. Ventolin HFA Inhalation : Aerosol Solution 108 (90 Base) mcg/act. Vistaril Oral : Capsule 25 mg, 1 capsule. Vitamin D3 Oral : Tablet 1000 unit, 1 tablet. Voltaren Transdermal : Gel 1 %. CONTINUE TAKING THE FOLLOWING MEDICATIONS UNTIL YOU CHECK WITH YOUR PHYSICIAN: Cyclobenzaprine HCl Oral : Tablet 5 mg, 1 tablet, prn. Dilaudid Oral : Tablet 2 mg, 2 tablets PRN, prn. Understanding of the discharge instructions verbalized by patient and parent. Follow-up with: Halle Zavaleta MD, [facility], , [facility], [address] [facility] [address] [place] [address] Follow up in five days. Call for the next available appointment. ADDITIONAL INFORMATION Accidental Ingestion:Non-Toxic [Adult] You have been evaluated and treated for taking too much of a medicine or swallowing a chemical product. There is no sign of toxic effect at this time. It is very unlikely that any new symptoms will appear. As a safeguard, you must be alert for symptoms during the next 24 hours (see below). The exact symptom will depend on what was swallowed. Home Care: If LIQUID CHARCOAL was given to neutralize what was swallowed, it will cause a black color to the stools for 1-2 days. Usually, a laxative (sorbitol) is given with charcoal to speed the removal of any toxins from the intestinal tract. This may cause diarrhea for up to 24 hours. If no laxative was given with charcoal, you may get constipated. If this occurs, you may take an pyou-fow-uphirpp laxative such as Dulcolax pills or suppository. Prevention: Keep medicines, pesticides, and other household chemicals in their original containers. Clearly rolando all harmful products if a different bottle is used. Follow Up with your doctor if all symptoms do not resolve within 24 hours or if constipation is not relieved by one or two doses of laxatives. Get Prompt Medical Attention if any of the following occur: Excess drowsiness or inability to be awakened Rapid heart beat, shakiness or seizure Fast breathing (over 25 breaths/minute) or slow breathing (less than 8 breaths/minute) Feeling shortness of breath Fever of 100.4F (38C) or higher, or as directed by your healthcare provider Vomiting or diarrhea for more than 24 hours Blood in stools or vomit (black or red color) Chest or abdominal pain Dizziness, weakness or fainting Opiate Overdose You have been treated for an overdose of opiates (such as a prescription pain medicine or heroin).Taking too much opiates is dangerous because they cause breathing to slow and possibly stop.If you stop breathing for more than 2-3 minutes, your heart will stop and you will . If your overdose was severe, you may have received an antidote called Narcan (naloxone). The antidote effect lasts for about 1-2 hours.If the opiate has not left your system by the time the Narcan wears off your symptoms may return (such as drowsiness and slow breathing). If you were addicted and physically dependent on opiates, then Narcan may cause withdrawal symptoms to appear immediately.These may consist of body aches, diarrhea, abdominal cramps, nausea, vomiting, runny nose, sneezing, sweating, yawning, restlessness, irritability, or trembling.These symptoms will go away as the Narcan wears off. Home Care Rest for the next [address] or operate any vehicle or dangerous equipment until all narcotic effects have worn off and you are no longer feeling sleepy or drowsy. If you were previously prescribed narcotic medicines for pain, do not take any more of this medicine for the next 6-8 hours, unless told otherwise. If narcotics or other drugs were swallowed, you may have been given liquid charcoal to neutralize those drugs.The charcoal may cause nausea and vomiting over the next few hours. It will also cause a black color to your stools for the next 1-2 days. Usually, a laxative is given with charcoal to speed the removal of any toxins from the intestinal tract. This may cause diarrhea for up to 24 hours. If no laxative was given, there may be a tendency toward constipation. If this occurs, you may take an qirt-tpy-mpvjqfp laxative such as Dulcolax pills or suppository, or Milk of Magnesia. Follow Up with your doctor if all symptoms do not resolve within 24 hours or if constipation is not relieved after two doses of laxatives.If your overdose was related to a drug addiction, seek drug counseling. Consider a drug treatment program to help you break your habit. Return Promptly or contact your doctor if any of the following occur: Excess drowsiness or inability to be awakened Slow breathing under 8 breaths per minute Shortness of breath or cough with colored sputum Fever over 100.4F (38.0C) oral Redness, swelling or tenderness at the heroin injection site Feeling that you might harm yourself or another You have been given the following additional information: Overdose, Accidental (Adult) Overdose, Opiate No driving or operating machinery. Stay with responsible adult family member (or other responsible adult). (Electronically signed by Tino Bailey MD 02/26/2017 13:49)
--- NOTE | 2017-02-26 13:55 | ED MAR SUMMARY ---
..... Medication Administration Record [facility] [address] [place] [address] Patient: DENISE ENAMORADO Visit ID: [id number] 51y, F Weight: 99.3 kg Height/Length: 72 in BMI: 29.7 ALLERGIES: Aspirin, Latex, Penicillins, plastic tape , Strawberries, Walnuts Start 11:05 02/26/2017 Sheriff Jenkins R.N. Medication Administered: IV NS (SALINE), Dose: IV Fluids over 1 hour(s), Rate: 1000 mL/hr, Dispensed: 1000 mL bag, Site: #1 right wrist. Medication Ordered: IV NS : initial bolus 500 mL (1000 mL/hr), then 125 mL/hr for 4h (NOW); Urgent.
--- NOTE | 2017-02-26 13:55 | ED MAR SUMMARY ---
..... Medication Administration Record [facility] [address] [place] [address] Patient: DENISE ENAMORADO Visit ID: [id number] 51y, F Weight: 99.3 kg Height/Length: 72 in BMI: 29.7 ALLERGIES: Aspirin, Latex, Penicillins, plastic tape , Strawberries, Walnuts Start 11:05 02/26/2017 Sheriff Jenkins R.N. Medication Administered: IV NS (SALINE), Dose: IV Fluids over 1 hour(s), Rate: 1000 mL/hr, Dispensed: 1000 mL bag, Site: #1 right wrist. Medication Ordered: IV NS : initial bolus 500 mL (1000 mL/hr), then 125 mL/hr for 4h (NOW); Urgent.
== END 2017-02-26 13:37 | disposition home or self-care (01) ==
LOC: ED SRH 10:37
DX: T40.2X1A Poisoning by other opioids, accidental (unintentional), initial encounter (principal); X58.XXXA Exposure to other specified factors, initial encounter; Y93.9 Activity, unspecified; Y92.9 Unspecified place or not applicable; Y99.9 Unspecified external cause status; I10 Essential (primary) hypertension; E11.9 Type 2 diabetes mellitus without complications; Z79.899 Other long term (current) drug therapy; Z79.84 Long term (current) use of oral hypoglycemic drugs; Z88.0 Allergy status to penicillin
CPT/HCPCS: 90004; 90100; 90616; 90939; 92010; 92235; 92530; 92610; 92780; 93140; 94001; 94060; 95059; 97000